=== PATIENT | female | born 1950 | race Caucasian/White ===

== ENCOUNTER 2016-10-23 20:05 | Inpatient (IN) | payer MEDICARE ==
[2016-10-23] VITALS (7 sets, daily range): BP systolic 129–139; BP diastolic 60–87; PULSE 83–94; RESP 16–19; TEMP 94–97.8; O2SAT 90–98
[~2016-10-23] VITALS: Ht 160 cm; Wt 82.1 kg
[~2016-10-23 20:05] MED LIST: BUSP10 PO; CALC600T37 PO; FLUO40CA PO; LOVA20TA PO; QUET25 PO; ZYPR20TA PO
--- NOTE | 2016-10-23 20:23 | PD ---
HPI Chief Complaint: Injury Time Seen by Provider: 20:14 Travel History International Travel<30 days: No Contact w/Intl Traveler<30days: No Traveled to known affect area: No History of Present Illness HPI Patient's 66 years old. About 30 minutes prior to ER arrival the patient fell and fractured her right ankle. Deformity and severe pain noted. Pain improved with immobilization. Patient's pain improved with morphine. EMS notes intact pulses. No other injury to report. Onset sudden. PFSH Past Medical History Anxiety: Yes Depression: Yes Heart Rhythm Problems: No Cardiac Catheterization: Yes (PT DOES NOT RECALL) Cardiovascular Problems: No High Cholesterol: Yes Diabetes: No Diminished Hearing: No Hypertension: No Psychiatric: Yes Schizophrenia: Yes Menopausal: Yes : 1 Para: 0 Miscarriage: 0 : 0 Past Surgical History Section: Yes Tonsillectomy: Yes Social History Alcohol Use: Yes (OCCAISIONAL) Tobacco Use: No Substance Use: No (Patient denies any abuse or drug experimentation.) Allergies-Medications (Allergen,Severity, Reaction): Coded Allergies: No Known Allergies (Unverified , 10/23/16) Reported Meds & Prescriptions Reported Meds & Active Scripts Active Reported Tussin Cf Liq (Zdrakznelwpwz-Zvhuytpewfeufk-Qzdeygxrbym Liq) 5-10-100 Mg/5 Ml Liq 10 Ml PO TID PRN Quetiapine (Quetiapine Fumarate) 50 Mg Tab 50 Mg PO DAILY Olanzapine 20 Mg Tab 20 Mg PO HS Fluoxetine (Fluoxetine HCl) 40 Mg Cap 40 Cap PO DAILY Buspirone (Buspirone HCl) 10 Mg Tab 10 Mg PO BID Atorvastatin (Atorvastatin Calcium) 20 Mg Tab 20 Mg PO DAILY Review of Systems Except as stated in HPI: all other systems reviewed are Neg Physical Exam Narrative GENERAL: 66 F, NAD, WNWD SKIN: Warm and dry. HEAD: Atraumatic. Normocephalic. EYES: Pupils equal and round. No scleral icterus. No injection or drainage. ENT: No nasal bleeding or discharge. Mucous membranes pink and moist. NECK: Trachea midline. No JVD. CARDIOVASCULAR: Regular rate and rhythm. RESPIRATORY: No accessory muscle use. Clear to auscultation. Breath sounds equal bilaterally. GASTROINTESTINAL: Abdomen soft, non-tender, nondistended. Hepatic and splenic margins not palpable. MUSCULOSKELETAL: R ankle fracture/dislocation w gross deformity. 2+ DP bilaterally. No evidence open injury/fracture. NEUROLOGICAL: Awake and alert. No obvious cranial nerve deficits. Motor grossly within normal limits. Five out of 5 muscle strength in the arms and legs. Normal speech. PSYCHIATRIC: Appropriate mood and affect; insight and judgment normal. Data Data Last Documented VS Vital Signs Date Time Temp Pulse Resp B/P Pulse Ox O2 Delivery O2 Flow Rate FiO2 10/23/16 21:01 86 19 129/63 94 4 10/23/16 20:30 Nasal Cannula VS reviewed Orders Ankle, Limited (Ap&Lat) (10/23/16 ) Complete Blood Count With Diff (10/23/16 20:18) Comprehensive Metabolic Panel (10/23/16 20:18) Prothrombin Time / Inr (Pt) (10/23/16 20:18) Act Partial Throm Time (Ptt) (10/23/16 20:18) Iv Access Insert/Monitor (10/23/16 20:18) Oximetry (10/23/16 20:18) Ecg Monitoring (10/23/16 20:18) Sodium Chloride 0.9% Flush (Ns Flush) (10/23/16 20:30) Propofol 200 Mg/20 Ml Inj (Diprivan 200 (10/23/16 20:30) Sodium Chlor 0.9% 1000 Ml Inj (Ns 1000 M (10/23/16 20:30) Ankle, Limited (Ap&Lat) (10/23/16 ) Admit Order (Ed Use Only) (10/23/16 21:23) Labs Laboratory Tests Test 10/23/16 20:53 White Blood Count 5.2 TH/MM3 Red Blood Count 4.09 MIL/MM3 Hemoglobin 11.5 GM/DL Hematocrit 35.9 % Mean Corpuscular Volume 87.6 FL Mean Corpuscular Hemoglobin 28.1 PG Mean Corpuscular Hemoglobin 32.1 % Concent Red Cell Distribution Width 14.2 % Platelet Count 121 TH/MM3 Mean Platelet Volume 9.4 FL Neutrophils (%) (Auto) 66.9 % Lymphocytes (%) (Auto) 20.4 % Monocytes (%) (Auto) 11.9 % Eosinophils (%) (Auto) 0.2 % Basophils (%) (Auto) 0.6 % Neutrophils # (Auto) 3.5 TH/MM3 Lymphocytes # (Auto) 1.1 TH/MM3 Monocytes # (Auto) 0.6 TH/MM3 Eosinophils # (Auto) 0.0 TH/MM3 Basophils # (Auto) 0.0 TH/MM3 CBC Comment DIFF FINAL Differential Comment Prothrombin Time 10.5 SEC Prothromb Time International 1.0 RATIO Ratio Activated Partial 23.9 SEC Thromboplast Time Sodium Level 140 MEQ/L Potassium Level 3.8 MEQ/L Chloride Level 110 MEQ/L Carbon Dioxide Level 23.4 MEQ/L Anion Gap 7 MEQ/L Blood Urea Nitrogen 10 MG/DL Creatinine 1.11 MG/DL Estimat Glomerular Filtration 49 ML/MIN Rate Random Glucose 112 MG/DL Calcium Level 7.7 MG/DL Total Bilirubin 0.1 MG/DL Aspartate Amino Transf 23 U/L (AST/SGOT) Alanine Aminotransferase 17 U/L (ALT/SGPT) Alkaline Phosphatase 67 U/L Total Protein 6.0 GM/DL Albumin 2.7 GM/DL [facility] Medical Decision Making Medical Screen Exam Complete: Yes Emergency Medical Condition: Yes Medical Record Reviewed: Yes Differential Diagnosis Tibia fx, fibula fx, fx of tarsal/s, contusion, neurovascular injury Narrative Course Closed reduction performed twice for better alignment. The patient will be admitted for operative repair. Discussed with orthopedics information resource consultant, Dr. Estrada. Discussed with Bernardo Rios. Diagnosis Primary Impression: Fracture, ankle Qualified Code: S82.891A - Fracture, ankle, right, closed, initial encounter Additional Impression: Dislocated ankle Qualified Code: S93.04XA - Dislocated ankle, right, initial encounter Admitting Information Admitting Physician Requests: Admit Scripts Calcium Carbonate-Vitamin D (Calcium 600+D 200)600-200 Mg-Unit Tab1 Tab PO BID #60 TAB Ref 2 Prov:William Baldwin MD 10/24/16 Cholecalciferol (Vitamin D3)2,000 Unit Cap2,000 Units PO DAILY #56 CAP Ref 0 Prov:William Baldwin MD 10/24/16 Ergocalciferol 50,000 Unit Cap50,000 Units PO Q7D #56 CAP Prov:William Baldwin MD 10/24/16 Hydrocodone-Acetaminophen (Harlan)7.5-325 mg Tab1 Tab PO Q4H PRN (PAIN) #50 TAB Ref 0 Prov:William Baldwin MD 10/24/16 Agapito Rivera MD October 23, 2016 20:23
[2016-10-23] MEDS ORDERED: SODIUM CHLOR 0.9% 1000 ML INJ 1,000 ML IV ONE (20:30)
[2016-10-23] MEDS ORDERED: PROPOFOL 200 MG/20 ML AMP IV ONE ×2 (20:30→21:45)
[2016-10-23] MEDS ORDERED: SODIUM CHLORIDE 0.9% FLUSH 10 ML FLUSH IVF PRN (20:30)
--- NOTE | 2016-10-23 20:45 | RADRPT ---
EXAM DATE/TIME: 10/23/2016 20:18 [facility] COMPARISON: No previous studies available for comparison. INDICATIONS : Right ankle pain after falling. MEDICAL HISTORY : None. SURGICAL HISTORY : None. ENCOUNTER: Initial ACUITY: 1 day PAIN SCORE: 8/10 LOCATION: Right ankle. FINDINGS: There is a fracture and dislocation seen at the ankle. The talus is displaced posteriorly and latera lly in relationship to the distal tibia. There is fracturing of the distal fibula and lateral malleo fahad and the medial malleolus. The distal fibula appears to primarily remain aligned with the talus. On the frontal view the medial malleolus appears to align with the medial aspect of the talus althou gh on the lateral view it may actually project over the distal aspect of the talus. There also appea rs to be a fracture deformity at the distal lateral aspect of the talus. The calcaneus appears gross ly intact. CONCLUSION: Fractures and dislocation at the ankle and distal fibula and tibia as described above. Bernardo Quiñones MD on October 23, 2016 at 20:32 Board Certified Radiologist. This report was verified electronically.
[2016-10-23] MEDS ORDERED: ATOR20TA15 PO (21:14)
[2016-10-23] MEDS ORDERED: TUSSLIQ5 PO (21:14)
[2016-10-23] MEDS ORDERED: FLUO40CA PO (21:14)
[2016-10-23] MEDS ORDERED: QUET5TAB PO (21:14)
[2016-10-23] MEDS ORDERED: OLAN20TA PO (21:14)
[2016-10-23] MEDS ORDERED: BUSP10TA PO (21:14)
[2016-10-23 21:21] LABS: AUTOMATED NEUTROPHIL # 3.5 TH/MM3 (1.8-7.7); BASOPHIL % 0.6 % (0.0-2.0); EOSINOPHIL % 0.2 % (0.0-4.0); HEMATOCRIT 35.9 % (35.0-46.0); HEMO FLAGS DIFF FINAL; LYMPH % 20.4 % (9.0-44.0); LYMPHOCYTE # 1.1 TH/MM3 (1.0-4.8); MEAN CELL VOLUME 87.6 FL (80.0-100.0); MEAN CORPUSCULAR HEMOGLOBIN 28.1 PG (27.0-34.0); MEAN CORPUSCULAR HGB CONC 32.1 % (32.0-36.0); MONO % 11.9 % (0.0-8.0); NEUT % 66.9 % (16.0-70.0); PLATELET COUNT 121 TH/MM3 (150-450); RED BLOOD COUNT 4.09 MIL/MM3 (4.00-5.30); RED CELL DISTRIBUTION WIDTH 14.2 % (11.6-17.2); WHITE BLOOD COUNT 5.2 TH/MM3 (4.0-11.0)
[2016-10-23 21:31] LABS: APTT (PATIENT) 23.9 SEC (24.3-30.1); PROTHROMBIN TIME - PATIENT 10.5 SEC (9.8-11.6)
--- NOTE | 2016-10-23 21:39 | RADRPT ---
EXAM DATE/TIME: 10/23/2016 21:06 [facility] COMPARISON: ANKLE RIGHT LIMITED (AP&LAT), October 23, 2016, 20:18. INDICATIONS : Post reduction right ankle. MEDICAL HISTORY : None. SURGICAL HISTORY : None. ENCOUNTER: Initial ACUITY: 1 day PAIN SCORE: 7/10 LOCATION: Right ankle FINDINGS: The patient is in a cast. Again noted are fractures at the distal fibula and medial malleolus. Ther e is some posterior and lateral subluxation of the talus in relationship to the distal tibia. CONCLUSION: Persistent posterior and lateral subluxation of the talus in relationship to the tibia. The alignment is substantially improved. Bernardo Quiñones MD on October 23, 2016 at 21:29 Board Certified Radiologist. This report was verified electronically.
[2016-10-23 21:42] LABS: ANION GAP 7 MEQ/L (5-15); AST (GOT) 23 U/L (15-37); BICARBONATE 23.4 MEQ/L (21.0-32.0); BLOOD UREA NITROGEN 10 MG/DL (7-18); CHLORIDE 110 MEQ/L (98-107); GLOMERULAR FILTRATION RATE 49 ML/MIN (>89); POTASSIUM 3.8 MEQ/L (3.5-5.1); SODIUM (NA) 140 MEQ/L (136-145)
[2016-10-23 21:48] LABS: ALKALINE PHOSPHATASE 67 U/L (45-117); ALT (GPT) 17 U/L (10-53); TOTAL BILIRUBIN ADULT 0.1 MG/DL (0.2-1.0)
[2016-10-23] MEDS ORDERED: ACETAMINOPHEN 325 MG TAB PO PRN (22:00)
[2016-10-23] MEDS ORDERED: ONDANSETRON HCL 4 MG/2 ML VIAL IVP PRN (22:00)
[2016-10-23] MEDS ORDERED: SODIUM CHLORIDE 0.9% FLUSH 10 ML FLUSH IV FLUSH PRN (22:00)
[2016-10-23] MEDS ORDERED: BISACODYL 10 MG SUPP RECTAL PRN (22:00)
[2016-10-23] MEDS ORDERED: MORPHINE SULFATE 4 MG/ML INJ IV PRN (22:00)
[2016-10-23] MEDS ORDERED: NALOXONE HCL 0.4 MG/ML AMP IV PRN (22:00)
[2016-10-23] MEDS ORDERED: SENNOSIDES 8.6 MG TAB PO PRN (22:00)
--- NOTE | 2016-10-23 22:34 | RADRPT ---
EXAM DATE/TIME: 10/23/2016 22:14 [facility] COMPARISON: ANKLE RIGHT LIMITED (AP&LAT), October 23, 2016, 21:06. INDICATIONS : Post reduction right ankle, MEDICAL HISTORY : None. SURGICAL HISTORY : None. ENCOUNTER: Subsequent ACUITY: 1 day PAIN SCORE: Non-responsive. LOCATION: Right ankle FINDINGS: Again noted is the fracturing of the distal fibula and the medial malleolus. There is slight lateral subluxation of the talus in relationship to the distal tibia. The alignment is improved from the pr ior exam. The patient is in a cast. CONCLUSION: Fracture deformities of the distal fibula and medial malleolus with slight lateral displacement of th e talus in relationship to the distal tibia. Bernardo Quiñones MD on October 23, 2016 at 22:26 Board Certified Radiologist. This report was verified electronically.
[2016-10-23] MEDS: MORPHINE SULFATE 4 MG/ML INJ IV PRN (23:00)
[2016-10-23] MEDS: SODIUM CHLOR 0.9% 1000 ML INJ 1,000 ML IV SCH (23:17)
[2016-10-24 03:24] VITALS: BP 121/70; PULSE 78; RESP 17; TEMP 96; O2SAT 98
[2016-10-24] MEDS: MORPHINE SULFATE 4 MG/ML INJ IV PRN (03:39)
--- NOTE | 2016-10-24 06:38 | PD.ORT.PN ---
Subjective Subjective Remarks Fall at assisted living facility right ankle fracture and deformity. No other complaints Objective Vitals Vital Signs Date Time Temp Pulse Resp B/P Pulse Ox O2 Delivery O2 Flow Rate FiO2 10/24/16 03:24 96.0 78 17 121/70 98 10/23/16 23:00 96.5 85 17 139/76 94 10/23/16 22:39 89 17 138/60 95 3 10/23/16 22:15 94 16 139/65 98 Nasal Cannula 3 10/23/16 22:02 97 Nasal Cannula 5.00 10/23/16 22:02 97 5.00 10/23/16 22:02 97 10/23/16 21:01 86 19 129/63 94 4 10/23/16 20:30 96 6.00 10/23/16 20:30 96 10/23/16 20:30 96 Nasal Cannula 6.00 10/23/16 20:11 97.8 83 16 130/87 90 I/O 10/23/16 10/23/16 10/23/16 10/24/16 10/24/16 10/24/16 07:00 15:00 23:00 07:00 15:00 23:00 Intake Total 480 ml Balance 480 ml Intake Oral 480 ml # Voids 0 # Bowel Movements 0 Result Diagram: 10/23/16205210/23/162052 Other Results Laboratory Tests Test 10/23/16 20:53 Prothrombin Time 10.5 SEC (9.8-11.6) Prothromb Time International 1.0 RATIO Ratio Imaging Last 72 hours Impressions Ankle X-Ray 10/23/16 0000 Signed Impressions: Service Date/Time: October 22:14 - CONCLUSION: Fracture deformities of the distal fibula and medial malleolus with slight lateral displacement of the talus in relationship to the distal tibia. Bernardo Quiñones MD Ankle X-Ray 10/23/16 0000 Signed Impressions: Service Date/Time: October 21:06 - CONCLUSION: Persistent posterior and lateral subluxation of the talus in relationship to the tibia. The alignment is substantially improved. Bernardo Quiñones MD Ankle X-Ray 10/23/16 0000 Signed Impressions: Service Date/Time: October 20:18 - CONCLUSION: Fractures and dislocation at the ankle and distal fibula and tibia as described above. Bernardo Quiñones MD Objective Remarks Right lower extremity: No pain with hip or knee range of motion. Splint intact distally intact sensation with good capillary refills Assessment & Plan Assessment and Plan Right trimalleolar ankle fracture Nothing by mouth Sign consents Surgery this morning with Dr. Baldwin for ORIF We'll plan discharge back to assisted living facility Jonathon Leigh Jr. October 24, 2016 06:38
[2016-10-24] MEDS ORDERED: GENTAMICIN SULFATE 80 MG/2 ML VIAL ONE (06:47)
[2016-10-24] MEDS ORDERED: fentaNYL CITRATE 250 MCG/5 ML AMP ONE (06:54)
[2016-10-24] MEDS ORDERED: ACETAMINOPHEN 1000 MG/100 ML VIAL IV ONE (06:54)
[2016-10-24] MEDS: SODIUM CHLORIDE 0.9% FLUSH 10 ML FLUSH IV FLUSH SCH ×2 (07:12→21:00)
[2016-10-24] MEDS: SODIUM CHLOR 0.9% 1000 ML INJ 1,000 ML IV SCH ×2 (07:12→11:39)
[2016-10-24] MEDS ORDERED: VANCOMYCIN HCL 1000 MG VIAL ONE (07:37)
[2016-10-24] MEDS ORDERED: ceFAZolin 2 GM PREMIX 50 ML ONE (07:37)
[2016-10-24] MEDS ORDERED: SODIUM CHLOR 0.9% 250 ML INJ 250 ML ONE (07:37)
--- NOTE | 2016-10-24 08:03 | MB ---
cc: IVY PATEL DATE OF CONSULTATION: 10/24/2016 REASON FOR CONSULTATION Right ankle fracture-dislocation. HISTORY OF PRESENT ILLNESS Josee is a 66-year-old female who lives at [facility]. She states that she lost her balance and fell. She rolled her right ankle as she fell. She had immediate right ankle pain. She was unable to stand or ambulate. She had obvious deformity or her ankle. She presented to the emergency room where x-rays revealed a fracture-dislocation of the right ankle. She underwent closed reduction in the emergency department. She has been admitted for treatment of this injury. Currently her only complaint is her right ankle. Pain is worse with movement and is improved with rest. PAST MEDICAL HISTORY ILLNESSES 1. High cholesterol. 2. Depression. 3. Anxiety. 4. Schizophrenia. ALLERGIES No known drug allergies. MEDICATIONS 1. Guaifenesin. 2. Olanzapine. 3. Fluoxetine. 4. Buspirone. 5. Atorvastatin. 6. Quetiapine. PAST SURGICAL HISTORY 1. Tonsillectomy. 2. . SOCIAL HISTORY The patient does drink alcohol. She denies tobacco or drug use. REVIEW OF SYSTEMS The patient denies headache, visual changes, neck pain, chest pain, shortness of breath, abdominal pain, nausea, vomiting or recent weight loss. She complains of right ankle pain. Pain is worse with movement. FAMILY HISTORY Noncontributory. PHYSICAL EXAMINATION GENERAL: The patient is a well-developed, well-nourished 66-year-old female who is awake and alert. She is alert and oriented x3. VITAL SIGNS: Temperature 96.0, pulse 78, respirations 17, blood pressure 121/70. O2 sat is 98% on three liter nasal cannula. HEAD: The patient is normocephalic. Pupils are equal. NECK: Soft, nontender. Trachea is midline. CHEST: Lungs are clear. ABDOMEN: Soft, nontender, nondistended. EXTREMITIES: Examination of bilateral upper extremities reveals no pain with shoulder, elbow or wrist motion. She has intact sensation in all fingers. She has good capillary refill in all fingers. Radial pulses are palpable. Examination of left leg reveals no pain with hip, knee or ankle motion. Skin is intact. Dorsalis pedis pulse is palpable. Examination of right leg reveals no pain with hip or knee motion. She is diffusely tender around the ankle. There is mild swelling present. Skin is intact. Dorsalis pedis pulse is palpable. Sensation is intact. X-RAYS X-rays of right ankle were reviewed. X-rays reveal initial trimalleolar ankle fracture with dislocation. IMPRESSION 1. Right ankle fracture-dislocation. 2. Depression. 3. History of schizophrenia. 4. Tobacco dependence. PLAN The treatment options were discussed with the patient. At this point I would recommend open reduction, internal fixation of right ankle. The risks of surgery include bleeding, infection, injuries to arteries, nerves and blood vessels, nonunion, malunion, wound complications, infection, as well as medical complications including blood clot, stroke, heart attack and . All questions were answered. I explained to the patient that she will need to stop smoking to help decrease her risk of infection as well as increase her rate of healing. All questions were answered. I will plan on surgery today. A mid-level provider in my office, nurse practitioner or PA, may see this patient on a follow-up basis and continue to implement the objective of this plan including: Starting or adjusting medications, injections of muscle, tendon, bursa or joints, cast application, orthotic or brace application, physical therapy, further radiographic studies including x-ray, MRI, CT, ultrasounds or bone scan, vascular studies, neurologic studies, or other specialist consultations, and proceeding with surgical management as appropriate. MD TRISTAN Berumen/ANGELIC /6:41 AM /7:51 AM
--- NOTE | 2016-10-24 08:39 | PD.OP ---
cc: William Geiger MD Operative Report Date of Surgery: October 24, 2016 Preoperative Diagnosis: Displaced right ankle trimalleolar fracture with syndesmosis disruption Postoperative Diagnosis: Procedure: Open reduction internal fixation right ankle fractures with syndesmotic fixation Anesthesia: Gen. Surgeon: William Geiger Bicycle I Assembler(s): MADAN Gold PA-C The surgical procedure was assisted by my physician compliance assistant. My P.A. presence was necessary throughout this case for the manipulation and positioning of the surgical extremity. My P.A. was assisting me throughout the duration of this procedure. The skill set of a physician compliance assistant was medically necessary to complete this procedure. During the surgical case the surgical scrub technician was working at the back table and the physician compliance assistant was directly assisting me. Operation and Findings: Patient was seen and evaluated preoperatively and found to have a displaced right ankle trimalleolar fracture dislocation. Informed consent was obtained after a detailed discussion of risk and benefits of surgery. The operative site was marked. Patient was brought to the OR, placed on the OR table, and given IV sedation and general endotracheal anesthesia. IV antibiotics were given preoperatively. A timeout procedure was performed. The left leg was prepped with alcohol followed by Hibiclens and draped in the usual sterile fashion. Attention was turned towards the distal fibula. A four-inch incision was made over the distal fibula. The subcutaneous tissue was dissected with Bovie. The fracture site was visualized. The fracture site was cleaned with curets. The fracture had some comminution. The fracture was now reduced. The fracture keyed into anatomic alignment. K-wires were used to h old provisional fixation. A lag screw was placed to compress fracture. A Synthes plate was selected. The plate was provisionally held to bone with K-wires. 3.5 cortical screws were used to compress the plate to bone. Multiple screws were placed above and below the fracture. Next attention was turned towards the medial malleolus. The medial malleolus supposed through a 3 cm incision. Saphenous vein was retracted. Fracture was visualized. Fracture was cleaned with curettes. Fracture was now reduced and keyed into anatomic alignment. K wires were used to hold provisional fixation. 2 guidepins for the 4.0 cannulated screws were placed in a retrograde fashion across the fracture. Fluoroscopy was used to confirm guidepin placement. Cannulated drill was placed over the guidepin. 2 appropriate length screws were now placed. Good compression was applied. Fluoroscopy confirmed well aligned fracture with well-placed hardware. Next, attention was turned to the syndesmosis. The syndesmosis was stressed. There was widening of the syndesmosis with external rotation of the ankle. The syndesmosis was now held in a reduced position with the ankle in neutral position. Two Synthes 4.0 cortical screws were now placed through the fibula plate into the tibia. Fluoroscopy confirmed appropriate screw placement with well-aligned syndesmosis. Incisions were thoroughly irrigated. The subcutaneous tissue was closed with 3-0 PDS and the skin was closed with 3-0 nylon. Sterile dressings were applied. A well molded well-padded splint was applied. The patient was transferred to Recovery in stable condition. Needle and sponge counts were correct. William Geiger MD October 24, 2016 08:39
[2016-10-24] MEDS ORDERED: ERGO1CAP30 PO (08:42)
[2016-10-24] MEDS ORDERED: HYDR-3288 PO (08:42)
[2016-10-24] MEDS ORDERED: CALCTAB19 PO (08:42)
[2016-10-24] MEDS ORDERED: VITA2000 PO (08:42)
[2016-10-24] MEDS ORDERED: ACETAMINOPHEN/HYDROcodone 325 MG/7.5 MG TAB PO PRN (08:45)
[2016-10-24] MEDS ORDERED: Post-op Orders (for Pharmacy) MISC XX ONE (08:45)
[2016-10-24] MEDS ORDERED: MORPHINE SULFATE 4 MG/ML INJ IV PUSH PRN (08:45)
--- NOTE | 2016-10-24 09:03 | RADRPT ---
EXAM DATE/TIME: 10/24/2016 08:23 [facility] COMPARISON: ANKLE RIGHT LIMITED (AP&LAT), October 23, 2016, 22:14. INDICATIONS : Post-op ORIF right ankle fracture. MEDICAL HISTORY : None. SURGICAL HISTORY : None. ENCOUNTER: Subsequent ACUITY: 2 days PAIN SCORE: Non-responsive. LOCATION: Right Ankle. FINDINGS: Hand Drawer In Helper images during right ankle ORIF document a lateral fibular side plate with multiple interlocking screws and 2 syndesmotic screws. There are 2 partially threaded cannulated screws traversing the med ial malleolus. Overall, there is improved anatomic alignment ankle mortise is intact. CONCLUSION: Spot images obtained during right ankle ORIF, as above. Bernardo Robledo MD on October 24, 2016 at 8:55 Board Certified Radiologist. This report was verified electronically.
[2016-10-24] MEDS ORDERED: WALKER/ADULT/FO1 MIS (09:11)
[2016-10-24] MEDS ORDERED: *RESP: ALBUTEROL 2.5 MG/3 ML NEB (PRN) PERIprocedural Use ONLY NEB ONE (09:17)
[2016-10-24] MEDS ORDERED: DO NOT ADM ANY ANTICOAGULANT DRUGS PRN (10:15)
[2016-10-24 10:58] VITALS: BP 103/60; PULSE 86; RESP 18; TEMP 97.2; O2SAT 96
[2016-10-24] MEDS: ACETAMINOPHEN/HYDROcodone 325 MG/7.5 MG TAB PO PRN ×3 (11:39→21:23)
[2016-10-24] MEDS ORDERED: ONDANSETRON HCL 4 MG/2 ML VIAL IV PUSH ONE (12:00)
[2016-10-24] MEDS ORDERED: PROPOFOL 200 MG/20 ML AMP IV ONE (12:00)
[2016-10-24] MEDS ORDERED: PHENYLEPH/NS 1000 MCG/10 ML SYR IV ONE (12:00)
--- NOTE | 2016-10-24 12:08 | HHI.HP ---
[facility] Peewee Montana M.D. Admission Diagnosis R Ankle Fx Diagnoses: Chief Complaint: fall and right ankle pain (Mary Bonds) Travel History International Travel<30 Days: No Contact w/Intl Traveler <30 Da: No Traveled to Known Affected Are: No (Mary Bonds) History of Present Illness This is a 66-year-old female from a local assisted living facility, has significant past medical history of schizophrenia, depression, hyperlipidemia. Patient presented to the emergency room after she had a fall and fracture right ankle. She had significant deformity and pain. Denies any preceding symptoms prior to the fall, indicates she was leaning against a wall when her ankle twisted. She did not hit her head, no neck pain. No loss of consciousness. Denies any recent illnesses, no fever, no chills, no chest pain, shortness of breath. Patient was evaluated in emergency room, laboratory workup was completed. Unremarkable except for mild elevation in creatinine, 1.11. Imaging studies were completed. She was found with a displaced right ankle trimalleolar fracture. Orthopedic evaluated patient, surgery was recommended. Patient underwent open reduction internal fixation right ankle fractures with syndesmotic fixation. Patient is now evaluated postop, she is awake alert oriented 3. Denies any pain at this time. She is tolerating meals well, no nausea, no vomiting. Patient is admitted for further evaluation and treatment. (Mary Bonds) Review of Systems ROS Limitations: Poor Historian Musculoskeletal: COMPLAINS OF: Joint pain (Mary Bonds) Past Family Social History Past Medical History Hyperlipidemia Manic-depressive Schizophrenia Past Surgical History cardiac cath STT 2016 tonsillectomy c section Reported Medications Reported Meds & Active Scripts Active Calcium 600+D 200 (Calcium Carbonate-Vitamin D) 600-200 Mg-Unit Tab 1 Tab PO BID Vitamin D3 (Cholecalciferol) 2,000 Unit Cap 2,000 Units PO DAILY Ergocalciferol 50,000 Unit Cap 50,000 Units PO Q7D [place] (Hydrocodone-Acetaminophen) 7.5-325 mg Tab 1 Tab PO Q4H PRN Reported Tussin Cf Liq (Kqheqgnevvnsm-Kwtdyttshgokeq-Ubgrrekbmrw Liq) 5-10-100 Mg/5 Ml Liq 10 Ml PO TID PRN Quetiapine (Quetiapine Fumarate) 50 Mg Tab 50 Mg PO DAILY Olanzapine 20 Mg Tab 20 Mg PO HS Fluoxetine (Fluoxetine HCl) 40 Mg Cap 40 Cap PO DAILY Buspirone (Buspirone HCl) 10 Mg Tab 10 Mg PO BID Atorvastatin (Atorvastatin Calcium) 20 Mg Tab 20 Mg PO DAILY (Mary Bonds) Allergies: Coded Allergies: No Known Allergies (Unverified , 10/23/16) Active Ordered Medications Inpatient Medications Acetaminophen (Tylenol) 650 mg Q4H PRN PO TEMP > 100.4; Start 10/23/16 at 22:00 Acetaminophen/ Hydrocodone Bitart ([place] 7.5-325 Mg) 2 tab Q6H PRN PO PAIN GREATER THAN/EQUAL TO 5; Start 10/24/16 at 08:45 Bisacodyl (Dulcolax Supp) 10 mg DAILY PRN RECTAL CONSTIPATION; Start 10/23/16 at 22:00 Cefazolin Sodium/ Dextrose (Ancef 2 Gm Premix) 50 ml @ 100 mls/hr Q8H IV ; Start 10/24/16 at 16:00; Stop 10/25/16 at 08:29 Miscellaneous Information ALL NURSING DEPARTME... UNSCH PRN .XX SEE LABEL COMMENTS; Start 10/24/16 at 10:15; Stop 10/25/16 at 10:14 Morphine Sulfate (Morphine Inj) 4 mg Q3H PRN IV PUSH break thru pain; Start 10/24/16 at 08:45 Naloxone HCl 0.4 mg 0.4 mg UNSCH PRN IV SEE LABEL COMMENTS; Start 10/23/16 at 22 :00 Ondansetron HCl (Zofran Inj) 4 mg Q6H PRN IVP NAUSEA OR VOMITING; Start at 22:00 Propofol (Diprivan 200 Mg/20 ml Inj) 100 mg ONCE ONCE IV Last administered on 10/23/16 21:00; Start 10/23/16 at 20:30; Stop 10/23/16 at 20:31; Status DC Propofol 100 mg 100 mg ONCE ONCE IV Last administered on 10/23/16 22:20; Start 10/23/16 at 21:45; Stop 10/23/16 at 21:46; Status DC Sennosides (Senokot) 17.2 mg Q12H PRN PO CONSTIPATION; Start 10/23/16 at 22:00 Sodium Chloride (NS 1000 ml Inj) 1,000 ml @ 100 mls/hr Q10H IV Last administered on 10/24/16t 11:39; Start 10/23/16 at 22:00 Sodium Chloride (NS Flush) 2 ml BID IV FLUSH ; Start 10/24/16 at 09:00 Family History Father with CABG at age 89, still living at age 92 No other significant family history of diabetes, heart disease or cancers. Social History Denies ever using tobacco or illicit drugs. Used to drink approximately 12 beers monthly on a social occasion, but none recent due to living at an [facility] Patient is Patient has a daughter who lives in the area named [place] Resides at [facility] (Mary Bonds) Physical Exam Vital Signs Vital Signs Date Time Temp Pulse Resp B/P Pulse Ox O2 Delivery O2 Flow Rate FiO2 10/24/16 10:00 83 25 114/56 94 Nasal Cannula 4 10/24/16 09:45 92 16 109/55 92 Nasal Cannula 4 10/24/16 09:30 97 18 130/59 95 Nasal Cannula 4 10/24/16 09:14 97.5 117 19 144/87 80 Simple Mask 10 10/24/16 03:24 96.0 78 17 121/70 98 10/23/16 23:00 96.5 85 17 139/76 94 10/23/16 22:39 89 17 138/60 95 3 10/23/16 22:15 94 16 139/65 98 Nasal Cannula 3 10/23/16 22:02 97 Nasal Cannula 5.00 10/23/16 22:02 97 5.00 10/23/16 22:02 97 10/23/16 21:01 86 19 129/63 94 4 10/23/16 20:30 96 6.00 10/23/16 20:30 96 10/23/16 20:30 96 Nasal Cannula 6.00 10/23/16 20:11 97.8 83 16 130/87 90 Physical Exam GENERAL: This is a well-nourished, well-developed patient, in no apparent distress. SKIN: No rashes, ecchymoses or lesions. Cool and dry. HEAD: Atraumatic. Normocephalic. No temporal or scalp tenderness. EYES: Pupils equal round and reactive. Extraocular motions intact. No scleral icterus. No injection or drainage. ENT: Nose without bleeding, purulent drainage or septal hematoma. Throat without erythema, tonsillar hypertrophy or exudate. Uvula midline. Airway patent. NECK: Trachea midline. No JVD or lymphadenopathy. Supple, nontender, no meningeal signs. CARDIOVASCULAR: Regular rate and rhythm without murmurs, gallops, or rubs. RESPIRATORY: Clear to auscultation. Breath sounds equal bilaterally. No wheezes , rales, or rhonchi. GASTROINTESTINAL: Abdomen soft, non-tender, nondistended. No hepato-splenomegaly , or palpable masses. No guarding. MUSCULOSKELETAL: Right leg in splint with dressing in place. Right foot with intact sensation, right pedal pulse 2+. NEUROLOGICAL: Awake, alert oriented 3. No focal deficits. Laboratory Laboratory Tests Test 10/23/16 20:53 White Blood Count 5.2 Red Blood Count 4.09 Hemoglobin 11.5 Hematocrit 35.9 Mean Corpuscular Volume 87.6 Mean Corpuscular Hemoglobin 28.1 Mean Corpuscular Hemoglobin 32.1 Concent Red Cell Distribution Width 14.2 Platelet Count 121 Mean Platelet Volume 9.4 Neutrophils (%) (Auto) 66.9 Lymphocytes (%) (Auto) 20.4 Monocytes (%) (Auto) 11.9 Eosinophils (%) (Auto) 0.2 Basophils (%) (Auto) 0.6 Neutrophils # (Auto) 3.5 Lymphocytes # (Auto) 1.1 Monocytes # (Auto) 0.6 Eosinophils # (Auto) 0.0 Basophils # (Auto) 0.0 CBC Comment DIFF FINAL Differential Comment Prothrombin Time 10.5 Prothromb Time International 1.0 Ratio Activated Partial 23.9 Thromboplast Time Sodium Level 140 Potassium Level 3.8 Chloride Level 110 Carbon Dioxide Level 23.4 Anion Gap 7 Blood Urea Nitrogen 10 Creatinine 1.11 Estimat Glomerular Filtration 49 Rate Random Glucose 112 Calcium Level 7.7 Total Bilirubin 0.1 Aspartate Amino Transf 23 (AST/SGOT) Alanine Aminotransferase 17 (ALT/SGPT) Alkaline Phosphatase 67 Total Protein 6.0 Albumin 2.7 (Mary Bonds) Result Diagram: 10/23/16205210/23/162052 Imaging Last Impressions Ankle X-Ray 10/24/16 0000 Signed Impressions: Service Date/Time: Monday, October 24, 2016 08:23 - CONCLUSION: Spot images obtained during right ankle ORIF, as above. Bernardo Robledo MD (Mary Bonds) Assessment and Plan Problem List: (1) Fracture, ankle (2) Depression (3) HLD (hyperlipidemia) (4) Schizophrenia (5) Renal insufficiency Assessment and Plan Admit to Dr. Turner 66-year-old female admitted after fall, was found with displaced right ankle trimalleolar fracture with syndesmosis disruption, status post-Open reduction internal fixation right ankle fractures with syndesmotic fixation 10/24 -Appreciate orthopedic input Continue pain management -Continue IVF Physical therapy Bowel regimen has been ordered We will order Lovenox 40 mg subcutaneous daily to start tomorrow Mild renal insufficiency Continue IV fluids Depression, schizophrenia, stable Continue home medications Hyperlipidemia Continue home medications Lovenox for DVT prophylaxis Repeat labs in the morning Plan of care has been discussed with the patient, attending and registered nurse. Further management of the patient will be dependent on the hospital course This patient was seen by myself and Dr. Turner, this H&P is written on his behalf (Mary Bonds) Assessment and Plan pt is seen & examined d/w PT d/w Mary [place] above will f/u (Kel Turner MD) Physician Certification 2 Midnight Certification Type: Admission for Inpatient Services Order for Inpatient Services The services are ordered in accordance with Medicare regulations or non- Medicare payer requirements, as applicable. In the case of services not specified as inpatient-only, they are appropriately provided as inpatient services in accordance with the 2-midnight benchmark. Estimated LOS (days): 2 2 days is the estimated time the patient will need to remain in the hospital, assuming treatment plan goals are met and no additional complications. Post-Hospital Plan: SNF (Mary Bonds) Problem Qualifiers (1) Fracture, ankle: Qualified Code: S82.891A - Fracture, ankle, right, closed, initial encounter (2) Depression: Qualified Code: F32.9 - Depression, unspecified depression type (3) HLD (hyperlipidemia): Qualified Code: E78.5 - Hyperlipidemia, unspecified hyperlipidemia type (4) Schizophrenia: Qualified Code: F20.9 - Schizophrenia, unspecified type Mary Bonds October 24, 2016 12:08 Kel Turner MD October 24, 2016 12:47
[2016-10-24 16:00] VITALS: BP 120/63; PULSE 104; RESP 18; TEMP 98.9; O2SAT 94
[2016-10-24] MEDS: ceFAZolin 2 GM PREMIX 50 ML IV SCH (16:14)
[2016-10-24 16:45] VITALS: O2SAT 97
[2016-10-24 20:00] VITALS: BP 122/71; PULSE 106; RESP 18; TEMP 99.4; O2SAT 96
[2016-10-24 20:55] VITALS: O2SAT 97
[2016-10-24] MEDS: CALCIUM/VITAMIN D 250 MG/125 U TAB PO SCH (21:21)
[2016-10-24] MEDS: busPIRone HCL 10 MG TAB PO SCH (21:22)
[2016-10-24] MEDS: OLANZapine 10 MG TAB PO SCH (21:22)
[2016-10-25] VITALS (7 sets, daily range): BP systolic 94–138; BP diastolic 58–68; PULSE 92–103; RESP 18–22; TEMP 97.2–100.8; O2SAT 92–94
[2016-10-25] MEDS: ceFAZolin 2 GM PREMIX 50 ML IV SCH ×2 (00:15→09:29)
[2016-10-25] MEDS: ACETAMINOPHEN/HYDROcodone 325 MG/7.5 MG TAB PO PRN ×2 (03:14→12:25)
[2016-10-25] MEDS: SODIUM CHLOR 0.9% 1000 ML INJ 1,000 ML IV SCH ×2 (04:00→14:26)
[2016-10-25 05:21] LABS: HEMATOCRIT 29.8 % (35.0-46.0); MEAN CELL VOLUME 85.6 FL (80.0-100.0); MEAN CORPUSCULAR HEMOGLOBIN 28.8 PG (27.0-34.0); MEAN CORPUSCULAR HGB CONC 33.6 % (32.0-36.0); PLATELET COUNT 102 TH/MM3 (150-450); RED BLOOD COUNT 3.49 MIL/MM3 (4.00-5.30); RED CELL DISTRIBUTION WIDTH 14.2 % (11.6-17.2); REVIEW FLAG FINAL; WHITE BLOOD COUNT 6.6 TH/MM3 (4.0-11.0)
[2016-10-25 05:43] LABS: BICARBONATE 23.3 MEQ/L (21.0-32.0); POTASSIUM 3.3 MEQ/L (3.5-5.1)
--- NOTE | 2016-10-25 06:58 | PD.ORT.PN ---
Subjective Subjective Remarks Resting comfortably with no new complaints Objective Vitals Vital Signs Date Time Temp Pulse Resp B/P Pulse Ox O2 Delivery O2 Flow Rate FiO2 10/25/16 04:10 100.8 101 20 117/58 93 10/25/16 00:05 99.1 92 19 113/59 94 10/24/16 20:55 97 10/24/16 20:00 99.4 106 18 122/71 96 10/24/16 17:44 16 10/24/16 16:45 97 21 10/24/16 16:00 98.9 104 18 120/63 94 10/24/16 10:58 97.2 86 18 103/60 96 10/24/16 10:00 83 25 114/56 94 Nasal Cannula 4 10/24/16 09:45 92 16 109/55 92 Nasal Cannula 4 10/24/16 09:30 97 18 130/59 95 Nasal Cannula 4 10/24/16 09:14 97.5 117 19 144/87 80 Simple Mask 10 I/O 10/24/16 10/24/16 10/24/16 10/25/16 10/25/16 10/25/16 07:00 15:00 23:00 07:00 15:00 23:00 Intake Total 480 ml 800 ml 720 ml 120 ml Output Total 1050 ml 600 ml 1100 ml Balance 480 ml -250 ml 120 ml -980 ml Intake Oral 480 ml 720 ml 120 ml Other 800 ml Output Urine Total 1000 ml 600 ml 1100 ml Estimated Blood Loss 50 ml # Voids 1 # Bowel Movements 0 0 0 Result Diagram: 10/25/16 0508 10/25/16 0508 Imaging Last 72 hours Impressions Ankle X-Ray 10/23/16 0000 Signed Impressions: Service Date/Time: October 22:14 - CONCLUSION: Fracture deformities of the distal fibula and medial malleolus with slight lateral displacement of the talus in relationship to the distal tibia. Bernardo Quiñones MD Ankle X-Ray 10/23/16 0000 Signed Impressions: Service Date/Time: October 21:06 - CONCLUSION: Persistent posterior and lateral subluxation of the talus in relationship to the tibia. The alignment is substantially improved. Bernardo Quiñones MD Ankle X-Ray 10/23/16 0000 Signed Impressions: Service Date/Time: October 20:18 - CONCLUSION: Fractures and dislocation at the ankle and distal fibula and tibia as described above. Bernardo Quiñones MD Objective Remarks Right lower extremity: Splint intact, clean dry with no drainage. Intact sensation in all toes. With good capillary refills Assessment & Plan Assessment and Plan Right trimalleolar ankle fracture POD 1 ORIF Nonweightbearing right lower extremity Maintain splint Elevation and ice Plan for discharge to assisted living when medically stable Orthopedically cleared for discharge Follow-up with Dr. Geiger or PA in 2 weeks Jonathon Leigh Jr. October 25, 2016 06:58
[2016-10-25] MEDS: SODIUM CHLORIDE 0.9% FLUSH 10 ML FLUSH IV FLUSH SCH ×2 (09:00→20:44)
[2016-10-25] MEDS: busPIRone HCL 10 MG TAB PO SCH ×2 (09:29→20:44)
[2016-10-25] MEDS: FLUoxetine HCL 20 MG CAP PO SCH (09:29)
[2016-10-25] MEDS: ATORVASTATIN 20 MG TAB PO SCH (09:29)
[2016-10-25] MEDS: QUEtiapine FUMARATE 25 MG TAB PO SCH (09:30)
[2016-10-25] MEDS: CALCIUM/VITAMIN D 250 MG/125 U TAB PO SCH ×2 (09:30→20:41)
[2016-10-25] MEDS: ENOXAPARIN SODIUM 40 MG/0.4 ML SYRINGE SQ SCH (09:31)
[2016-10-25] MEDS: CHOLECALCIFEROL (VIT D3) 1000 UNIT TAB PO SCH (09:35)
--- NOTE | 2016-10-25 12:47 | HHI.PR ---
Subjective Remarks resting up in chair alert, oriented low grade fever rt. leg wrapped, immobilized, CDI constipation (Ila Reddy) Objective Objective Results - Vital Signs Date Time Temp Pulse Resp B/P Pulse Ox O2 Delivery O2 Flow Rate FiO2 10/25/16 08:00 99.0 99 18 94/62 92 10/25/16 04:10 100.8 101 20 117/58 93 10/25/16 00:05 99.1 92 19 113/59 94 10/24/16 20:55 97 10/24/16 20:00 99.4 106 18 122/71 96 10/24/16 17:44 16 10/24/16 16:45 97 21 10/24/16 16:00 98.9 104 18 120/63 94 I/O 10/24/16 10/24/16 10/24/16 10/25/16 10/25/16 10/25/16 07:00 15:00 23:00 07:00 15:00 23:00 Intake Total 480 ml 800 ml 720 ml 120 ml Output Total 1050 ml 600 ml 1100 ml Balance 480 ml -250 ml 120 ml -980 ml Intake Oral 480 ml 720 ml 120 ml Other 800 ml Output Urine Total 1000 ml 600 ml 1100 ml Estimated Blood Loss 50 ml # Voids 1 # Bowel Movements 0 0 0 (Ila Reddy) Result Diagram: 10/25/16 0508 10/25/16 0508 ROS General: Fatigue, Weakness, Other (10 point ROS done, positives noted include constipation. Generalized weakness and fatigue otherwise systems unremarkable) GI: Abdominal Pain, Other (constipation) (Ila Reddy) Physical Exam Physical Exam PHYSICAL EXAMINATION GENERAL: This is a , well-nourished female who appears to be in no acute distress. She is alert and awake, up in chair HEAD: Normocephalic without any lesion or mass noted. Facial features appear symmetric. OROPHARYNGEAL: Oropharynx without erythema or edema. NECK: Supple. No nuchal rigidity or lymphadenopathy. Trachea midline without deviation. CARDIAC: Regular rhythm, regular rate, S1 and S2 are heard. LUNGS: Clear to auscultation bilaterally. No rhonchi or wheezes ABDOMEN: taut, Soft, nontender, . Bowel sounds active EXTREMITIES: Mild right lower extremity edema. Pulses equal bilateral. NEUROLOGICAL: Patient mood and affect appropriate. No focal deficit SKIN:Warm and moist Objective Remarks I'm doing okay I guess but my bowels have not moved (Ila Reddy) A/P Assessment and Plan (1) Fracture, ankle (2) Depression (3) HLD (hyperlipidemia) (4) Schizophrenia (5) Renal insufficiency post-op Open reduction internal fixation right ankle fractures with syndesmotic fixation 10/24 orthopedic consult , appreciate input, cleared today from ortho standput. Continue pain management post op care management Physical therapy Bowel regimen , constipation Abdomen taut, no BM since admission and a few days before. We will check for impaction, Dulcolax suppository for today Hypokalemia, mild, 3.3 By mouth regimen ordered, Will recheck K in the morning Mild renal insufficiency Continue IV fluids Depression, schizophrenia, stable Continue home medications Hyperlipidemia Continue home medications Lovenox for DVT prophylaxis Discharge planning, 3008 on chart CM consult for SNF rehab. Non wt. bearing rt. leg, brace on Case management looking at options states will probably be be a tomorrow discharge. Discussed with nurse Discussed with case management Discussed with patient Specimen Dr. Turner, patient seen on his behalf (Ila Reddy) Assessment and Plan pt is seen & examined d.w PT d/w Ila rangel w above cont current tx PT lesly , NWB R LExt , she needs SNF placement ss for d./c planning will f/u (Kel Turner MD) Ila Reddy October 25, 2016 12:47 Kel Turner MD October 25, 2016 15:31
[2016-10-25] MEDS ORDERED: POTASSIUM CHLORIDE 25 MEQ EFFERVESCENT TAB PO ONE (13:00)
[2016-10-25] MEDS ORDERED: BISACODYL 10 MG SUPP RECTAL ONE (13:45)
[2016-10-25] MEDS: OLANZapine 10 MG TAB PO SCH (21:00)
[2016-10-26 03:07] VITALS: BP 132/68; PULSE 97; RESP 20; TEMP 98; O2SAT 94
[2016-10-26 04:00] VITALS: BP 120/61; PULSE 99; RESP 18; TEMP 100.1; O2SAT 95
--- NOTE | 2016-10-26 06:24 | PD.ORT.PN ---
Subjective Subjective Remarks POD 2 s/p ORIF right ankle doing well. pain controlled. no complaints. Objective Vitals Vital Signs Date Time Temp Pulse Resp B/P Pulse Ox O2 Delivery O2 Flow Rate FiO2 10/26/16 04:00 100.1 99 18 120/61 95 10/25/16 21:25 97.2 103 22 138/65 92 10/25/16 16:00 98.5 98 18 118/68 94 10/25/16 12:00 98.2 99 18 112/61 94 10/25/16 08:00 99.0 99 18 94/62 92 I/O 10/25/16 10/25/16 10/25/16 10/26/16 10/26/16 10/26/16 07:00 15:00 23:00 07:00 15:00 23:00 Intake Total 120 ml 720 ml 240 ml Output Total 1100 ml 1200 ml Balance -980 ml 720 ml -960 ml Intake Oral 120 ml 720 ml 240 ml Output Urine Total 1100 ml 1200 ml # Voids 1 10 # Bowel Movements 0 0 0 Result Diagram: 10/25/16 0508 10/26/16 0423 Imaging Last 72 hours Impressions Ankle X-Ray 10/23/16 0000 Signed Impressions: Service Date/Time: October 22:14 - CONCLUSION: Fracture deformities of the distal fibula and medial malleolus with slight lateral displacement of the talus in relationship to the distal tibia. Bernardo Quiñones MD Ankle X-Ray 10/23/16 0000 Signed Impressions: Service Date/Time: October 21:06 - CONCLUSION: Persistent posterior and lateral subluxation of the talus in relationship to the tibia. The alignment is substantially improved. Bernardo Quiñones MD Ankle X-Ray 10/23/16 0000 Signed Impressions: Service Date/Time: October 20:18 - CONCLUSION: Fractures and dislocation at the ankle and distal fibula and tibia as described above. Bernardo Quiñones MD Objective Remarks Right lower extremity: Splint intact, clean dry with no drainage. Intact sensation in all toes. With good capillary refills Assessment & Plan Assessment and Plan Right trimalleolar ankle fracture POD 2 ORIF Nonweightbearing right lower extremity Maintain splint Elevation and ice Plan for discharge to assisted living when medically stable Orthopedically cleared for discharge Follow-up with Dr. Geiger or PA in 2 weeks Antonio West October 26, 2016 06:24
[2016-10-26 08:00] VITALS: BP 119/64; PULSE 103; RESP 19; TEMP 98.1; O2SAT 96
[2016-10-26] MEDS: CALCIUM/VITAMIN D 250 MG/125 U TAB PO SCH (08:43)
[2016-10-26] MEDS: ATORVASTATIN 20 MG TAB PO SCH (08:43)
[2016-10-26] MEDS: QUEtiapine FUMARATE 25 MG TAB PO SCH (08:43)
[2016-10-26] MEDS: CHOLECALCIFEROL (VIT D3) 1000 UNIT TAB PO SCH (08:43)
[2016-10-26] MEDS: ENOXAPARIN SODIUM 40 MG/0.4 ML SYRINGE SQ SCH (08:43)
[2016-10-26] MEDS: FLUoxetine HCL 20 MG CAP PO SCH (08:43)
[2016-10-26] MEDS: busPIRone HCL 10 MG TAB PO SCH (08:49)
[2016-10-26] MEDS: SODIUM CHLORIDE 0.9% FLUSH 10 ML FLUSH IV FLUSH SCH (08:56)
--- NOTE | 2016-10-26 09:44 | HHI.PR ---
Subjective Remarks resting up in chair Awake understands that she possibly will discharge to [facility] low grade fever, documented rt. leg wrapped, immobilized, CDI constipation resolved, BM yesterday, no impaction noted (Ila Reddy) Objective Objective Results - Vital Signs Date Time Temp Pulse Resp B/P Pulse Ox O2 Delivery O2 Flow Rate FiO2 10/26/16 08:00 98.1 103 19 119/64 96 10/26/16 04:00 100.1 99 18 120/61 95 10/25/16 21:25 97.2 103 22 138/65 92 10/25/16 16:00 98.5 98 18 118/68 94 10/25/16 12:00 98.2 99 18 112/61 94 I/O 10/25/16 10/25/16 10/25/16 10/26/16 10/26/16 10/26/16 07:00 15:00 23:00 07:00 15:00 23:00 Intake Total 120 ml 720 ml 240 ml Output Total 1100 ml 1200 ml Balance -980 ml 720 ml -960 ml Intake Oral 120 ml 720 ml 240 ml Output Urine Total 1100 ml 1200 ml # Voids 1 10 # Bowel Movements 0 0 0 (Ila Reddy) Result Diagram: 10/25/16 0508 10/26/16 0423 ROS General: Weakness (right ankle nonweightbearing), Other (10 point ROS done, positives noted low-grade fever without leukocytosis, nonweightbearing right ankle, other systems unremarkable) GI: BM (yesterday) (Ila Reddy) Physical Exam Physical Exam PHYSICAL EXAMINATION GENERAL: This is a well-developed, well-nourished female who appears to be in no acute distress. She is awake, hungry HEAD: Normocephalic without any lesion or mass noted. Facial features appear symmetric. OROPHARYNGEAL: Oropharynx without erythema or edema. NECK: Supple. No nuchal rigidity or lymphadenopathy. Trachea midline without deviation. CARDIAC: Regular rhythm, regular rate, S1 and S2 are heard. LUNGS: Clear to auscultation bilaterally. No wheezes or rhonchi noted ABDOMEN: Soft, nontender, no organomegaly or masses. Bowel sounds active EXTREMITIES: Mild right ankle edema. Pulses equal bilateral. Right ankle and lower extremity wrapped and secured, clean dry and intact NEUROLOGICAL: Patient mood and affect appropriate. SKIN:Warm and moist Objective Remarks I'm hungry this morning. (Ila Reddy) A/P Assessment and Plan (1) Fracture, ankle (2) Depression (3) HLD (hyperlipidemia) (4) Schizophrenia (5) Renal insufficiency post-op Open reduction internal fixation right ankle fractures with syndesmotic fixation / orthopedic consult , appreciate input, cleared today from ortho standput. Continue pain management post op care management Discharge planning being reviewed for [facility] Bowel regimen , constipation treated yesterday Large BM without impaction, monitor Hypokalemia, mild, 3. 5 Resolved Depression, schizophrenia, stable Continue home medications Lovenox for DVT prophylaxis Discharge planning, 3008 on chart CM consult for SNF rehab. Non wt. bearing rt. leg, brace on Case management looking at options, possible [facility] today Discussed with nurse Discussed with patient Specimen Dr. Turner, patient seen on his behalf (Ila Reddy) Assessment and Plan pt is seen & examined d/w PT d/w Ila medically stable for d.c d/c to SNF see [facility] see [facility] f/u pcp f/u ortho see orders (Kel Turner MD) Ila Reddy October 26, 2016 09:44 Kel Turner MD October 26, 2016 11:49
[2016-10-26] MEDS: SODIUM CHLOR 0.9% 1000 ML INJ 1,000 ML IV SCH ×2 (10:00)
[2016-10-26] MEDS ORDERED: QUET1TAB7 PO (11:52)
[2016-10-26] MEDS ORDERED: OLAN10TA PO (11:52)
[2016-10-26 12:00] VITALS: BP 121/68; PULSE 100; RESP 18; TEMP 99; O2SAT 95
--- NOTE | 2016-10-26 14:33 | HHI.DS ---
Discharge Summary Admission Date October 23, 2016 at 21:25 Discharge Date: October 26, 2016 Admitting Diagnosis R Ankle Fx (1) Fracture, ankle Diagnosis: Principal (2) Depression Diagnosis: Secondary (3) HLD (hyperlipidemia) Diagnosis: Secondary (4) Schizophrenia Diagnosis: Secondary (5) Renal insufficiency Diagnosis: Principal Procedures internal ORIF rt. ankle Brief History This was a 66-year-old female from a local assisted living facility, had significant past medical history of schizophrenia, depression, hyperlipidemia. Patient presented to the emergency room after she had a fall and fracture right ankle. She had significant deformity and pain. Denied any preceding symptoms prior to the fall, indicated she was leaning against a wall when her ankle twisted. She did not hit her head, no neck pain. No loss of consciousness. Denied any recent illnesses, no fever, no chills, no chest pain, shortness of breath. CBC/BMP: 10/25/16 0508 10/26/16 0423 Significant Findings Laboratory Tests Test 10/23/16 10/25/16 20:53 05:08 Hemoglobin 11.5 GM/DL 10.0 GM/DL (11.6-15.3) (11.6-15.3) Platelet Count 121 TH/MM3 102 TH/MM3 (150-450) (150-450) Monocytes (%) (Auto) 11.9 % (0.0-8.0) Activated Partial 23.9 SEC Thromboplast Time (24.3-30.1) Chloride Level 110 MEQ/L 108 MEQ/L (98-107) (98-107) Creatinine 1.11 MG/DL (0.50-1.00) Estimat Glomerular Filtration 49 ML/MIN (>89) 67 ML/MIN (>89) Rate Random Glucose 112 MG/DL (74-106) Calcium Level 7.7 MG/DL 7.8 MG/DL (8.5-10.1) (8.5-10.1) Total Bilirubin 0.1 MG/DL (0.2-1.0) Total Protein 6.0 GM/DL (6.4-8.2) Albumin 2.7 GM/DL (3.4-5.0) Red Blood Count 3.49 MIL/MM3 (4.00-5.30) Hematocrit 29.8 % (35.0-46.0) Potassium Level 3.3 MEQ/L (3.5-5.1) Blood Urea Nitrogen 6 MG/DL (7-18) Imaging Last Impressions Ankle X-Ray 10/24/16 0000 Signed Impressions: Service Date/Time: Monday, October 24, 2016 08:23 - CONCLUSION: Spot images obtained during right ankle ORIF, as above. Bernardo Robledo MD PE at Discharge PHYSICAL EXAMINATION GENERAL: This was a well-developed, well-nourished female who appeared to be in no acute distress. She was awake, hungry HEAD: Normocephalic without any lesion or mass noted. Facial features appear symmetric. OROPHARYNGEAL: Oropharynx without erythema or edema. NECK: Supple. No nuchal rigidity or lymphadenopathy. Trachea midline without deviation. CARDIAC: Regular rhythm, regular rate, S1 and S2 are heard. LUNGS: Clear to auscultation bilaterally. No wheezes or rhonchi noted ABDOMEN: Soft, nontender, no organomegaly or masses. Bowel sounds active EXTREMITIES: Mild right ankle edema. Pulses equal bilateral. Right ankle and lower extremity wrapped and secured, clean dry and intact NEUROLOGICAL: Patient mood and affect appropriate. SKIN:Warm and moist Hospital Course Patient was evaluated in emergency room, laboratory workup was completed. Unremarkable except for mild elevation in creatinine, 1.11. Imaging studies were completed. She was found with a displaced right ankle trimalleolar fracture. Orthopedic evaluated patient, surgery was recommended. Patient underwent open reduction internal fixation right ankle fractures with syndesmotic fixation. Patient was evaluated postop, she was awake alert oriented 3. Denied any pain at this time. She was tolerating meals well, no nausea, no vomiting. Patient was admitted for further evaluation and treatment. These are the diagnoses that were used to treat this patient and direct her plan of care during this hospital stay. (1) Fracture, ankle (2) Depression (3) HLD (hyperlipidemia) (4) Schizophrenia (5) Renal insufficiency post-op Open reduction internal fixation right ankle fractures with syndesmotic fixation 10/24, day of admission orthopedic consult , appreciate input, cleared today from ortho standput. On Continue pain management post op care management Discharge planning being reviewed for [facility] Bowel regimen , constipation treated 10/25/16 Large BM without impaction, monitor Hypokalemia, mild, treated with oral potassium Potassium rechecked next a.m. , 3.5 , resolved Resolved Depression, schizophrenia, stable Continue home medications Lovenox for DVT prophylaxis Discharge planning, 3008 on chart CM consult for SNF rehab. Non wt. bearing rt. leg, brace on Case management looking at options, possible [facility] Cu[facility] today, reviewing paperwork for admission Patient has had activity increased has been up in chair for the past 48 hours tolerated well, she is nonweightbearing on her right ankle, and will need strengthening and assistance with her mobility. Dietary regimen as before. Assessment and visit abdomen per Dr. turner on 10/26/16 pt is seen & examined d/w PT d/w Ila medically stable for d.c d/c to SNF see MRS see [facility] f/u pcp f/u ortho Ila Reddy October 26, 2016 09:44 Kel Turner MD October 26, 2016 11:49 Pt Condition on Discharge: Stable Discharge Disposition: Discharge to SNF Discharge Instructions DIET: Follow Instructions for: Heart Healthy Diet Fluid Restrictions: nione Activities you can perform: Non Weight Bearing Follow up Referrals: Orthopedics - 2 Weeks @ [facility] with William Baldwin MD PCP Follow-up - 1 Week New Medications: Calcium Carbonate-Vitamin D (Calcium 600+D 200) 600-200 Mg-Unit Tab 1 TAB PO BID Nutritional Supplement #60 Ref 2 TAB Cholecalciferol (Vitamin D3) 2,000 Unit Cap 2000 UNITS PO DAILY Nutritional Supplement #56 Ref 0 CAP Ergocalciferol (Ergocalciferol) 50,000 Unit Cap 17297 UNITS PO Q7D Nutritional Supplement #56 CAP Hydrocodone-Acetaminophen ([place]) 7.5-325 mg Tab 1 TAB PO Q4H PRN PAIN #50 Ref 0 TAB Walker/Adult/Folding (Walker/Adult/Folding) 1 Mis Mis 1 EA .ROUTE DIRECTED #1 Ref 0 EA Olanzapine (Olanzapine) 10 Mg Tab 20 MG PO HS schizophrenia #30 TAB Quetiapine (Quetiapine) 25 Mg Tab 50 MG PO DAILY schizophrenia #30 TAB Continued Medications: Atorvastatin (Atorvastatin) 20 Mg Tab 20 MG PO DAILY Cholesterol Management #30 Ref 0 TAB Buspirone (Buspirone) 10 Mg Tab 10 MG PO BID Anxiety Ref 0 TAB Fluoxetine (Fluoxetine) 40 Mg Cap 40 CAP PO DAILY #30 Ref 0 CAP Discontinued Medications: Olanzapine (Olanzapine) 20 Mg Tab 20 MG PO HS #30 Ref 0 TAB Ozfznxiydvjzh-Ypeaqwuysjctvh-Eghdfbtambu Liq (Tussin Cf Liq) 5-10-100 Mg/5 Ml Liq 10 ML PO TID PRN COUGH AND/OR COLD SYMPTOMS #1 Ref 0 BOTTLE Quetiapine (Quetiapine) 50 Mg Tab 50 MG PO DAILY #30 Ref 0 TAB Ila Reddy October 26, 2016 14:33
[2016-10-26 16:00] VITALS: BP 133/74; PULSE 96; RESP 18; TEMP 98.3; O2SAT 94
== END 2016-10-26 20:00 | DRG 494 ==
LOC: NEPD 20:05 → NEDA 21:25 → N06B 22:44 → N06A 10-26 06:10
PROVIDERS: ADMIT Specialist; ATTEND Specialist
PROC: 0QSG04Z Reposition Right Tibia with Internal Fixation Device, Open Approach (ICD-10-PCS; 2016-10-24)
PROC: 0QSJ04Z Reposition Right Fibula with Internal Fixation Device, Open Approach (ICD-10-PCS; principal; 2016-10-24 07:21)
DX: S82.851A Displaced trimalleolar fracture of right lower leg, initial encounter for closed fracture (principal); E78.00 Pure hypercholesterolemia, unspecified; E78.5 Hyperlipidemia, unspecified; N28.9 Disorder of kidney and ureter, unspecified; K59.00 Constipation, unspecified; E87.6 Hypokalemia; F17.200 Nicotine dependence, unspecified, uncomplicated; F20.9 Schizophrenia, unspecified; F32.9 Major depressive disorder, single episode, unspecified; F41.9 Anxiety disorder, unspecified; W01.0XXA Fall on same level from slipping, tripping and stumbling without subsequent striking against object, initial encounter; Y92.199 Unspecified place in other specified residential institution as the place of occurrence of the external cause
CPT/HCPCS: 27840; 73600; 76000; 80048; 80053; 84132; 85025; 85027; 85610; 85730; 94150; 94640; 94770; C1713; J0131; J0690; J1580; J1650; J2270; J2370; J2405; J3010; J3370; J7030; J7050; J7613

== ENCOUNTER 2016-11-13 05:44 | Inpatient (IN) | payer MEDICARE ==
[~2016-11-13] VITALS: Ht 167.6 cm; Wt 81.2 kg
[2016-11-13] VITALS (8 sets, daily range): BP systolic 86–143; BP diastolic 54–64; PULSE 74–111; RESP 16–28; TEMP 97.8–101.3; O2SAT 94–99
[~2016-11-13 05:44] MED LIST changes: +ATOR20TA15 PO; -BUSP10 PO; +BUSP10TA PO; -CALC600T37 PO; +CALCTAB19 PO; +ERGO1CAP30 PO; +HYDR-3288 PO; -LOVA20TA PO; +OLAN10TA PO; +QUET1TAB7 PO; -QUET25 PO; +VITA2000 PO; +WALKER/ADULT/FO1 MIS; -ZYPR20TA PO
[2016-11-13] MEDS ORDERED: SODIUM CHLOR 0.9% 1000 ML INJ 1,000 ML IV ONE (06:00)
[2016-11-13] MEDS ORDERED: SODIUM CHLORIDE 0.9% FLUSH 10 ML FLUSH IVF PRN (06:00)
[2016-11-13] MEDS ORDERED: ONDANSETRON HCL 4 MG/2 ML VIAL IV PUSH ONE (06:00)
[2016-11-13 06:16] LABS: AUTOMATED NEUTROPHIL # 12.3 TH/MM3 (1.8-7.7); BASOPHIL # 0.1 TH/MM3 (0-0.2); BASOPHIL % 0.7 % (0.0-2.0); EOSINOPHIL % 0.1 % (0.0-4.0); HEMATOCRIT 32.4 % (35.0-46.0); HEMO FLAGS DIFF FINAL; LYMPH % 10.9 % (9.0-44.0); LYMPHOCYTE # 1.7 TH/MM3 (1.0-4.8); MEAN CELL VOLUME 85.1 FL (80.0-100.0); MEAN CORPUSCULAR HEMOGLOBIN 27.6 PG (27.0-34.0); MEAN CORPUSCULAR HGB CONC 32.4 % (32.0-36.0); MONO % 11.2 % (0.0-8.0); NEUT % 77.1 % (16.0-70.0); PLATELET COUNT 249 TH/MM3 (150-450); RED BLOOD COUNT 3.81 MIL/MM3 (4.00-5.30); RED CELL DISTRIBUTION WIDTH 14.2 % (11.6-17.2); WHITE BLOOD COUNT 15.9 TH/MM3 (4.0-11.0)
--- NOTE | 2016-11-13 06:17 | PD ---
HPI Chief Complaint: Cardiac Complaint Time Seen by Provider: 05:52 Travel History International Travel<30 days: No Contact w/Intl Traveler<30days: No Traveled to known affect area: No History of Present Illness HPI 66yo F with PMH of bipolar disorder, HLD presents to the ED with c/o chest pain since last night about 10pm. States it is pressure like, midsternal, worst with breathing and intermittent. States it radiates throughout the chest. Associated with sob, nausea, and NBNB vomiting. Pt was sent from [facility] and was there for rehab for right ankle fracture about 1 month ago. Pt was in chest pain center 07/09/15. As per our record, she had abnormal stress test in and underwent cardiac cath that showed normal coronaries. Denies history of DVT, PE. PFSH Past Medical History Anxiety: Yes Depression: Yes Heart Rhythm Problems: No Cardiac Catheterization: Yes (PT DOES NOT RECALL) Cardiovascular Problems: No High Cholesterol: Yes Diabetes: No Diminished Hearing: No Hypertension: No Psychiatric: Yes (SCHIZOPHRENIA) Schizophrenia: Yes ?: Not Menopausal: Yes : 1 Para: 0 Miscarriage: 0 : 0 Past Surgical History Section: Yes Tonsillectomy: Yes Social History Alcohol Use: Yes (OCCAISIONAL) Tobacco Use: No Substance Use: No (Patient denies any abuse or drug experimentation.) Allergies-Medications (Allergen,Severity, Reaction): Coded Allergies: No Known Allergies (Unverified , 10/23/16) Reported Meds & Prescriptions Reported Meds & Active Scripts Active Olanzapine 10 Mg Tab 20 Mg PO HS Quetiapine (Quetiapine Fumarate) 25 Mg Tab 50 Mg PO DAILY Walker/Adult/Folding (Device) 1 Mis Mis 1 Ea .ROUTE DIRECTED Calcium 600+D 200 (Calcium Carbonate-Vitamin D) 600-200 Mg-Unit Tab 1 Tab PO BID Vitamin D3 (Cholecalciferol) 2,000 Unit Cap 2,000 Units PO DAILY Ergocalciferol 50,000 Unit Cap 50,000 Units PO Q7D Reported Fluoxetine (Fluoxetine HCl) 40 Mg Cap 40 Cap PO DAILY Buspirone (Buspirone HCl) 10 Mg Tab 10 Mg PO BID Atorvastatin (Atorvastatin Calcium) 20 Mg Tab 20 Mg PO DAILY Review of Systems Except as stated in HPI: all other systems reviewed are Neg Physical Exam Narrative GENERAL: 66yo F in mild distress. SKIN: Focused skin assessment warm/dry. HEAD: Atraumatic. Normocephalic. EYES: Pupils equal and round. No scleral icterus. No injection or drainage. ENT: No nasal bleeding or discharge. Mucous membranes pink and moist. NECK: Trachea midline. No JVD. CARDIOVASCULAR: Regular rate and rhythm. No murmur appreciated. RESPIRATORY: + accessory muscle use. Crackles in left lung base. GASTROINTESTINAL: Abdomen soft, non-tender, nondistended. No rebound tenderness or guarding. MUSCULOSKELETAL: RLE: In case. Left leg: DP 2+. No edema. NEUROLOGICAL: Awake and alert. No obvious cranial nerve deficits. Motor grossly within normal limits. Normal speech. PSYCHIATRIC: Appropriate mood and affect; insight and judgment normal. Data Data Last Documented VS Vital Signs Date Time Temp Pulse Resp B/P Pulse Ox O2 Delivery O2 Flow Rate FiO2 11/13/16 07:13 104 19 121/58 99 Nasal Cannula 3 11/13/16 05:51 97.8 Orders Basic Metabolic Panel (Bmp) (11/13/16 05:48) Ckmb (Isoenzyme) Profile (11/13/16 05:48) Complete Blood Count With Diff (11/13/16 05:48) Magnesium (Mg) (11/13/16 05:48) Prothrombin Time / Inr (Pt) (11/13/16 05:48) Act Partial Throm Time (Ptt) (11/13/16 05:48) Troponin I (11/13/16 05:48) Lipase (11/13/16 05:48) Chest, Single Ap (11/13/16 05:48) Ecg Monitoring (11/13/16 05:48) Bilateral Bp Monitoring (11/13/16 05:48) Iv Access Insert/Monitor (11/13/16 05:48) Oximetry (11/13/16 05:48) Oxygen Administration (11/13/16 05:48) Sodium Chloride 0.9% Flush (Ns Flush) (11/13/16 06:00) Sodium Chlor 0.9% 1000 Ml Inj (Ns 1000 M (11/13/16 06:00) Ondansetron Inj (Zofran Inj) (11/13/16 06:00) Ct Pulmonary Angiogram (11/13/16 ) Electrocardiogram (11/13/16 ) Iohexol 350 Inj (Omnipaque 350 Inj) (11/13/16 07:43) Admit Order (Ed Use Only) (11/13/16 08:42) Enoxaparin Inj (Lovenox Inj) (11/13/16 08:45) Labs Laboratory Tests Test 11/13/16 06:00 White Blood Count 15.9 TH/MM3 Red Blood Count 3.81 MIL/MM3 Hemoglobin 10.5 GM/DL Hematocrit 32.4 % Mean Corpuscular Volume 85.1 FL Mean Corpuscular Hemoglobin 27.6 PG Mean Corpuscular Hemoglobin 32.4 % Concent Red Cell Distribution Width 14.2 % Platelet Count 249 TH/MM3 Mean Platelet Volume 8.9 FL Neutrophils (%) (Auto) 77.1 % Lymphocytes (%) (Auto) 10.9 % Monocytes (%) (Auto) 11.2 % Eosinophils (%) (Auto) 0.1 % Basophils (%) (Auto) 0.7 % Neutrophils # (Auto) 12.3 TH/MM3 Lymphocytes # (Auto) 1.7 TH/MM3 Monocytes # (Auto) 1.8 TH/MM3 Eosinophils # (Auto) 0.0 TH/MM3 Basophils # (Auto) 0.1 TH/MM3 CBC Comment DIFF FINAL Differential Comment Prothrombin Time 10.9 SEC Prothromb Time International 1.0 RATIO Ratio Activated Partial 23.8 SEC Thromboplast Time Sodium Level 139 MEQ/L Potassium Level 4.2 MEQ/L Chloride Level 106 MEQ/L Carbon Dioxide Level 23.7 MEQ/L Anion Gap 9 MEQ/L Blood Urea Nitrogen 12 MG/DL Creatinine 0.88 MG/DL Estimat Glomerular Filtration 64 ML/MIN Rate Random Glucose 134 MG/DL Calcium Level 9.2 MG/DL Magnesium Level 2.1 MG/DL Total Creatine Kinase 19 U/L Troponin I LESS THAN 0.02 NG/ML Lipase 100 U/L [facility] Medical Decision Making Medical Screen Exam Complete: Yes Emergency Medical Condition: Yes Interpretation(s) EKG: Sinus tachycardia at 111bpm. LAD. Poor baseline. Differential Diagnosis ACS vs. Pneumonia vs. PE vs. GERD vs. gastritis Narrative Course 66yo F here with chest pain. Chest pain is atypical and concerning for PE since pt had recent surgery and was in rehab. Labs reviewed, leukocytosis. Troponin negative. Sign out to next team to follow up CTA chest and disposition. Diagnosis Primary Impression: Pulmonary embolism Qualified Code: I26.99 - Other acute pulmonary embolism without acute cor pulmonale Stephania Samuel DO November 13, 2016 06:17
[2016-11-13 06:29] LABS: APTT (PATIENT) 23.8 SEC (24.3-30.1); PROTHROMBIN TIME - PATIENT 10.9 SEC (9.8-11.6)
--- NOTE | 2016-11-13 06:37 | RADRPT ---
EXAM DATE/TIME: 11/13/2016 06:02 [facility] COMPARISON: CHEST SINGLE AP, June 28, 2015, 18:32. INDICATIONS : Chest pain. MEDICAL HISTORY : None. SURGICAL HISTORY : None. ENCOUNTER: Initial ACUITY: 1 day PAIN SCORE: 6/10 LOCATION: Bilateral chest FINDINGS: A single view of the chest demonstrates the lungs to be symmetrically aerated without evidence of mas s, infiltrate or effusion other than small bibasilar infiltrates right greater than left. The cardio mediastinal contours are unremarkable. Osseous structures are intact. CONCLUSION: Normal examination except for mild bibasilar atelectasis right greater than left. Baljit Hernandez MD on November 13, 2016 at 6:35 Board Certified Radiologist. This report was verified electronically.
[2016-11-13 07:07] LABS: ANION GAP 9 MEQ/L (5-15); BICARBONATE 23.7 MEQ/L (21.0-32.0); BLOOD UREA NITROGEN 12 MG/DL (7-18); CHLORIDE 106 MEQ/L (98-107); GLOMERULAR FILTRATION RATE 64 ML/MIN (>89); MAGNESIUM 2.1 MG/DL (1.5-2.5); POTASSIUM 4.2 MEQ/L (3.5-5.1); SODIUM (NA) 139 MEQ/L (136-145)
[2016-11-13 07:13] LABS: CREATINE KINASE 19 U/L (26-192)
[2016-11-13] MEDS ORDERED: IOHEXOL 350 MG/ML 50 ML BTL (for RAD DIAG) IV ONE (07:43)
--- NOTE | 2016-11-13 07:54 | RADRPT ---
EXAM DATE/TIME: 11/13/2016 07:31 [facility] COMPARISON: CHEST SINGLE AP, November 13, 2016, 6:02. INDICATIONS : Chest pain and dyspnea IV CONTRAST: 50 cc Omnipaque 350 (iohexol) IV RADIATION DOSE: 23 CTDIvol (mGy) MEDICAL HISTORY : Cardiovascular disease. SURGICAL HISTORY : section. ENCOUNTER: Initial ACUITY: 1 day PAIN SCALE: 5/10 LOCATION: chest TECHNIQUE: Volumetric scanning of the chest was performed using a pulmonary embolism protocol MIP images were re constructed. Using automated exposure control and adjustment of the mA and/or kV according to patien t size, radiation dose was kept as low as reasonably achievable to obtain optimal diagnostic quality images. FINDINGS: PULMONARY ARTERIES: The main pulmonary artery and right and left main pulmonary arteries are patent. There are filling de fects in the right lobe pulmonary artery. There are smaller apparent filling defects in the left lowe r lobe pulmonary arteries. LUNGS: There is consolidation in both lung bases with air bronchograms. PLEURAE: There is a small right pleural effusion. MEDIASTINUM: There is good visualization of the great vessels of the middle mediastinum. No evidence of mediastin al or hilar adenopathy/mass. The heart size is mildly enlarged. MUSCULOSKELETAL: Within normal limits for patient age. MISCELLANEOUS: The visualized upper abdominal organs demonstrate no acute abnormality. A small hiatal hernia is note d. CONCLUSION: 1. Pulmonary emboli. This is greatest in the right lower lobe pulmonary arteries. There is apparent m ilder emboli in left lower lobe pulmonary arteries. 2. Consolidation in both posterior lung bases with small right effusion. 3. Cardiomegaly. 4. Hiatal hernia. Jonathon Esqueda MD on November 13, 2016 at 7:48 Board Certified Radiologist. This report was verified electronically.
--- NOTE | 2016-11-13 08:07 | PD ---
Physical Exam Narrative GENERAL: Well-nourished, well-developed patient. SKIN: Warm and dry. HEAD: Normocephalic and atraumatic. EYES: No injection or drainage. ENT: No nasal drainage noted. NECK: Supple, trachea midline. CARDIOVASCULAR: Regular rate RESPIRATORY: no increased effort. No accessory muscle use. NEUROLOGICAL: Awake and alert. moves all extremities. Normal speech. Data Data Last Documented VS Vital Signs Date Time Temp Pulse Resp B/P Pulse Ox O2 Delivery O2 Flow Rate FiO2 11/13/16 07:13 104 19 121/58 99 Nasal Cannula 3 11/13/16 05:51 97.8 Orders Basic Metabolic Panel (Bmp) (11/13/16 05:48) Ckmb (Isoenzyme) Profile (11/13/16 05:48) Complete Blood Count With Diff (11/13/16 05:48) Magnesium (Mg) (11/13/16 05:48) Prothrombin Time / Inr (Pt) (11/13/16 05:48) Act Partial Throm Time (Ptt) (11/13/16 05:48) Troponin I (11/13/16 05:48) Lipase (11/13/16 05:48) Chest, Single Ap (11/13/16 05:48) Ecg Monitoring (11/13/16 05:48) Bilateral Bp Monitoring (11/13/16 05:48) Iv Access Insert/Monitor (11/13/16 05:48) Oximetry (11/13/16 05:48) Oxygen Administration (11/13/16 05:48) Sodium Chloride 0.9% Flush (Ns Flush) (11/13/16 06:00) Sodium Chlor 0.9% 1000 Ml Inj (Ns 1000 M (11/13/16 06:00) Ondansetron Inj (Zofran Inj) (11/13/16 06:00) Ct Pulmonary Angiogram (11/13/16 ) Electrocardiogram (11/13/16 ) Iohexol 350 Inj (Omnipaque 350 Inj) (11/13/16 07:43) Admit Order (Ed Use Only) (11/13/16 08:42) Enoxaparin Inj (Lovenox Inj) (11/13/16 08:45) Labs Laboratory Tests Test 11/13/16 06:00 White Blood Count 15.9 TH/MM3 Red Blood Count 3.81 MIL/MM3 Hemoglobin 10.5 GM/DL Hematocrit 32.4 % Mean Corpuscular Volume 85.1 FL Mean Corpuscular Hemoglobin 27.6 PG Mean Corpuscular Hemoglobin 32.4 % Concent Red Cell Distribution Width 14.2 % Platelet Count 249 TH/MM3 Mean Platelet Volume 8.9 FL Neutrophils (%) (Auto) 77.1 % Lymphocytes (%) (Auto) 10.9 % Monocytes (%) (Auto) 11.2 % Eosinophils (%) (Auto) 0.1 % Basophils (%) (Auto) 0.7 % Neutrophils # (Auto) 12.3 TH/MM3 Lymphocytes # (Auto) 1.7 TH/MM3 Monocytes # (Auto) 1.8 TH/MM3 Eosinophils # (Auto) 0.0 TH/MM3 Basophils # (Auto) 0.1 TH/MM3 CBC Comment DIFF FINAL Differential Comment Prothrombin Time 10.9 SEC Prothromb Time International 1.0 RATIO Ratio Activated Partial 23.8 SEC Thromboplast Time Sodium Level 139 MEQ/L Potassium Level 4.2 MEQ/L Chloride Level 106 MEQ/L Carbon Dioxide Level 23.7 MEQ/L Anion Gap 9 MEQ/L Blood Urea Nitrogen 12 MG/DL Creatinine 0.88 MG/DL Estimat Glomerular Filtration 64 ML/MIN Rate Random Glucose 134 MG/DL Calcium Level 9.2 MG/DL Magnesium Level 2.1 MG/DL Total Creatine Kinase 19 U/L Troponin I LESS THAN 0.02 NG/ML Lipase 100 U/L [facility] Supervised Visit with KELLEY: No Interpretation(s) Last 24 hours Impressions Chest X-Ray 11/13/16 0548 Signed Impressions: Service Date/Time: October 06:02 - CONCLUSION: Normal examination except for mild bibasilar atelectasis right greater than left. Baljit Hernandez MD CT Angiography 11/13/16 0000 Signed Impressions: Service Date/Time: October 07:31 - CONCLUSION: 1. Pulmonary emboli. This is greatest in the right lower lobe pulmonary arteries. There is apparent milder emboli in left lower lobe pulmonary arteries. 2. Consolidation in both posterior lung bases with small right effusion. 3. Cardiomegaly. 4. Hiatal hernia. Jonathon Esqueda MD CBC & BMP Diagram 5/25/17 06:00 Narrative Course signed over to me to follow workup and admit, ct with pe, given lovenox after discussion with admitting team and patient updated Physician Communication Physician Communication antonio states to admit to dr rene and dose with lovenox Diagnosis Primary Impression: Pulmonary embolism Qualified Code: I26.99 - Other acute pulmonary embolism without acute cor pulmonale Desi Pryor MD November 13, 2016 08:07
[2016-11-13] MEDS ORDERED: ENOXAPARIN SODIUM 80 MG/0.8 ML SYRINGE SQ ONE (08:45)
[2016-11-13] MEDS ORDERED: NALOXONE HCL 0.4 MG/ML AMP IV PRN (08:45)
[2016-11-13] MEDS ORDERED: MAGNESIUM HYDROXIDE SUSP 30 ML CUP PO PRN (08:45)
[2016-11-13] MEDS ORDERED: ONDANSETRON HCL 4 MG/2 ML VIAL IVP PRN (08:45)
[2016-11-13] MEDS ORDERED: ACETAMINOPHEN 325 MG TAB PO PRN (08:45)
[2016-11-13] MEDS ORDERED: SODIUM CHLORIDE 0.9% FLUSH 10 ML FLUSH IV FLUSH PRN (08:45)
[2016-11-13] MEDS: SODIUM CHLOR 0.9% 1000 ML INJ 1,000 ML IV SCH ×2 (09:57→21:50)
[2016-11-13] MEDS: ATORVASTATIN 20 MG TAB PO SCH (10:14)
[2016-11-13] MEDS: CALCIUM/VITAMIN D 250 MG/125 U TAB PO SCH ×2 (10:14→19:39)
[2016-11-13] MEDS: FLUoxetine HCL 20 MG CAP PO SCH (10:14)
[2016-11-13] MEDS: QUEtiapine FUMARATE 25 MG TAB PO SCH (10:14)
[2016-11-13] MEDS: busPIRone HCL 10 MG TAB PO SCH ×2 (10:15→19:40)
[2016-11-13] MEDS: CHOLECALCIFEROL (VIT D3) 1000 UNIT TAB PO SCH (10:15)
--- NOTE | 2016-11-13 10:29 | HHI.HP ---
[facility] Service [facility] Primary Care Physician Unknown Admission Diagnosis pe Diagnoses: Travel History International Travel<30 Days: No Contact w/Intl Traveler <30 Da: No Traveled to Known Affected Are: No Past Family Social History Allergies: Coded Allergies: No Known Allergies (Unverified , 10/23/16) Physical Exam Vital Signs Vital Signs Date Time Temp Pulse Resp B/P Pulse Ox O2 Delivery O2 Flow Rate FiO2 11/13/16 09:57 104 28 143/63 96 Nasal Cannula 3 11/13/16 07:13 104 19 121/58 99 Nasal Cannula 3 11/13/16 05:54 107 11/13/16 05:54 95 11/13/16 05:54 95 Nasal Cannula 2 11/13/16 05:51 97.8 111 18 94 Physical Exam GENERAL: This is a well-nourished, well-developed patient, in no apparent distress. SKIN: No rashes, ecchymoses or lesions. Cool and dry. HEAD: Atraumatic. Normocephalic. No temporal or scalp tenderness. EYES: Pupils equal round and reactive. Extraocular motions intact. No scleral icterus. No injection or drainage. ENT: Nose without bleeding, purulent drainage or septal hematoma. Throat without erythema, tonsillar hypertrophy or exudate. Uvula midline. Airway patent. NECK: Trachea midline. No JVD or lymphadenopathy. Supple, nontender, no meningeal signs. CARDIOVASCULAR: Regular rate and rhythm without murmurs, gallops, or rubs. RESPIRATORY: Clear to auscultation. Breath sounds equal bilaterally. No wheezes , rales, or rhonchi. GASTROINTESTINAL: Abdomen soft, non-tender, nondistended. No hepato-splenomegaly , or palpable masses. No guarding. MUSCULOSKELETAL: Extremities without clubbing, cyanosis, or edema. No joint tenderness, effusion, or edema noted. No calf tenderness. Negative Homans sign bilaterally. NEUROLOGICAL: Awake and alert. Cranial nerves II through XII intact. Motor and sensory grossly within normal limits. Five out of 5 muscle strength in all muscle groups. Normal speech. Laboratory Laboratory Tests Test 11/13/16 06:00 White Blood Count 15.9 Red Blood Count 3.81 Hemoglobin 10.5 Hematocrit 32.4 Mean Corpuscular Volume 85.1 Mean Corpuscular Hemoglobin 27.6 Mean Corpuscular Hemoglobin 32.4 Concent Red Cell Distribution Width 14.2 Platelet Count 249 Mean Platelet Volume 8.9 Neutrophils (%) (Auto) 77.1 Lymphocytes (%) (Auto) 10.9 Monocytes (%) (Auto) 11.2 Eosinophils (%) (Auto) 0.1 Basophils (%) (Auto) 0.7 Neutrophils # (Auto) 12.3 Lymphocytes # (Auto) 1.7 Monocytes # (Auto) 1.8 Eosinophils # (Auto) 0.0 Basophils # (Auto) 0.1 CBC Comment DIFF FINAL Differential Comment Prothrombin Time 10.9 Prothromb Time International 1.0 Ratio Activated Partial 23.8 Thromboplast Time Sodium Level 139 Potassium Level 4.2 Chloride Level 106 Carbon Dioxide Level 23.7 Anion Gap 9 Blood Urea Nitrogen 12 Creatinine 0.88 Estimat Glomerular Filtration 64 Rate Random Glucose 134 Calcium Level 9.2 Magnesium Level 2.1 Total Creatine Kinase 19 Troponin I LESS THAN 0.02 Lipase 100 Result Diagram: 11/13/16 0600 11/13/16 0600 Mary Bonds November 13, 2016 10:29
--- NOTE | 2016-11-13 10:31 | HHI.HP ---
HPI Service [facility] Primary Care Physician Unknown Admission Diagnosis pe Diagnoses: Chief Complaint: Chest pain Travel History International Travel<30 Days: No Contact w/Intl Traveler <30 Da: No Traveled to Known Affected Are: No History of Present Illness This is a 66-year-old female from a local assisted living facility, has significant past medical history of schizophrenia, depression, hyperlipidemia. Patient was recently admitted after she had a fall and had a right trimalleolar ankle fracture. She underwent a right ORIF on October 24, 2016. She had an uneventful postoperative course and was eventually discharged to rehabilitation facility. Patient presented to the emergency room today complaining of chest pressure, indicates its midsternum started yesterday around 10 PM. Indicates that the pain never goes away, it is persistent, rate 77. Denies any radiation, some palpitations. Does not increase with palpation. No diaphoresis. She's had some nausea and vomiting, approximately 3 times. No Hematemesis. No fever, no chills. Indicates physical therapy has been going fairly well. Patient was evaluated in emergency room, laboratory workup was completed. CBC remarkable for leukocytosis, WBC 15.9. BMP unremarkable. Troponin negative. Total creatinine kinase 19. Urine analysis was negative. CTA of the chest was significant for pulmonary emboli, greatest in the right lower lobe pulmonary arteries. There is up when necessary milder emboli and left lower lobe pulmonary arteries. Consolidation in both posterior lung bases with small right effusion. Cardiomegaly. Hiatal hernia. Chest x- ray showed normal examination except for mild bibasal atelectasis, right greater than left. Patient was noted tachycardic, heart rate 100s. Blood pressure stable, 120s over 50s. Sats 99% on 3 L. 94 on room air. Patient was given a one-time dose of Lovenox weight-based. Patient denies any prior history of pulmonary emboli. No history of malignancy. Thinks that her father may have had history of PE. Patient is now admitted for further evaluation and treatment. Review of Systems Constitutional: DENIES: Diaphoretic episodes, Fatigue, Fever, Weight gain, Weight loss, Chills, Dizziness, Change in appetite, Night Sweats Endocrine: DENIES: Abnorml menstrual pattern, Heat/cold intolerance, Polydipsia , Polyuria, Polyphagia Eyes: DENIES: Blurred vision, Diplopia, Eye inflammation, Eye pain, Vision loss , Photosensitivity, Double Vision Ears, nose, mouth, throat: DENIES: Tinnitus, Hearing loss, Vertigo, Nasal discharge, Oral lesions, Throat pain, Hoarseness, Ear Pain, Running Nose, Epistaxis, Sinus Pain, Toothache, Odynophagia Respiratory: DENIES: Apneas, Cough, Snoring, Wheezing, Hemoptysis, Sputum production, Shortness of breath Cardiovascular: COMPLAINS OF: Chest pain, Palpitations Gastrointestinal: DENIES: Abdominal pain, Black stools, Bloody stools, Constipation, Diarrhea, Nausea, Vomiting, Difficulty Swallowing, Anorexia Genitourinary: DENIES: Abnormal vaginal bleeding, Dysmenorrhea, Dyspareunia, Sexual dysfunction, Urinary frequency, Urinary incontinence, Urgency, Hematuria , Dysuria, Nocturia, Vaginal discharge Musculoskeletal: COMPLAINS OF: Joint pain, DENIES: Muscle aches, Stiffness, Joint Swelling, Back pain, Neck pain Integumentary: DENIES: Abnormal pigmentation, Pruritus, Rash, Nail changes, Breast masses, Breast skin changes, Nipple discharge Hematologic/lymphatic: DENIES: Bruising, Lymphadenopathy Immunologic/allergic: DENIES: Eczema, Urticaria Neurologic: DENIES: Abnormal gait, Headache, Localized weakness, Paresthesias, Seizures, Speech Problems, Tremor, Poor Balance Psychiatric: DENIES: Anxiety, Confusion, Mood changes, Depression, Hallucinations, Agitation, Suicidal Ideation, Homicidal Ideation, Delusions Past Family Social History Past Medical History Hyperlipidemia Manic-depressive Schizophrenia S/P fall with displaced right ankle trimalleolar fracture with syndesmosis disruption October 24 Past Surgical History cardiac cath STT 2015 tonsillectomy c section S/P Open reduction internal fixation right ankle fractures with syndesmotic fixation 10/24 Reported Medications Reported Meds & Active Scripts Active Olanzapine 10 Mg Tab 20 Mg PO HS Quetiapine (Quetiapine Fumarate) 25 Mg Tab 50 Mg PO DAILY Walker/Adult/Folding (Device) 1 Mis Mis 1 Ea .ROUTE DIRECTED Calcium 600+D 200 (Calcium Carbonate-Vitamin D) 600-200 Mg-Unit Tab 1 Tab PO BID Vitamin D3 (Cholecalciferol) 2,000 Unit Cap 2,000 Units PO DAILY Ergocalciferol 50,000 Unit Cap 50,000 Units PO Q7D Reported Fluoxetine (Fluoxetine HCl) 40 Mg Cap 40 Cap PO DAILY Buspirone (Buspirone HCl) 10 Mg Tab 10 Mg PO BID Atorvastatin (Atorvastatin Calcium) 20 Mg Tab 20 Mg PO DAILY Allergies: Coded Allergies: No Known Allergies (Unverified , 10/23/16) Active Ordered Medications Inpatient Medications Acetaminophen (Tylenol) 650 mg Q4H PRN PO TEMP > 100.4; Start 11/13/16 at 08:45 ; Stop 11/13/16 at 12:52; Status DC Acetaminophen 650 mg 650 mg Q6H PRN PO fever/PAIN 1-10 Last administered on 13:15; Start 11/13/16 at 12:45 Atorvastatin Calcium (Lipitor) 20 mg DAILY PO Last administered on 11/13/16 10 :14; Start 11/13/16 at 09:00 Azithromycin/ Sodium Chloride (Zithromax Inj/ NS 250 ml Inj) 250 ml @ 250 mls/ hr Q24H IV Last administered on 11/13/16 15:17; Start 11/13/16 at 14:00 Buspirone HCl (Buspar) 10 mg BID PO Last administered on 11/13/16 10:15; Start 11/13/16 at 09:00 Calcium/Vitamin D (Oscal-D 250-125) 250 mg BID PO Last administered on 10:14; Start 11/13/16 at 10:00 Ceftriaxone Sodium 1000 mg/ Sodium Chloride 100 ml @ 200 mls/hr Q24H IV Last administered on 11/13/16 13:15; Start 11/13/16 at 14:00 Cholecalciferol (Vitamin D3) 2,000 units DAILY PO Last administered on 10:15; Start 11/13/16 at 09:00 Enoxaparin Sodium (Lovenox Inj) 70 mg Q12H SQ ; Start 11/13/16 at 21:00; Stop at 22:00 Enoxaparin Sodium 75 mg 75 mg ONCE ONCE SQ Last administered on 11/13/16 09: 56; Start 11/13/16 at 08:45; Stop 11/13/16 at 08:46; Status DC Fluoxetine HCl (PROzac) 40 mg DAILY PO Last administered on 11/13/16 10:14; Start 11/13/16 at 09:00 Magnesium Hydroxide (Milk Of Magnesia Liq) 30 ml Q12H PRN PO MILD - MODERATE CONSTIPATION; Start 11/13/16 at 08:45 Morphine Sulfate 4 mg 4 mg Q4H PRN IV PUSH pain 6-10 Last administered on 13:39; Start 11/13/16 at 12:45; Stop 11/13/16 at 16:41; Status DC Naloxone HCl (Narcan Inj) 0.4 mg UNSCH PRN IV SEE LABEL COMMENTS; Start at 08:45 Olanzapine (ZyPREXA) 20 mg HS PO ; Start 11/13/16 at 21:00 Ondansetron HCl (Zofran Inj) 4 mg Q6H PRN IVP NAUSEA OR VOMITING; Start at 08:45 Quetiapine Fumarate (SEROquel) 50 mg DAILY PO Last administered on 11/13/16 10 :14; Start 11/13/16 at 10:00 Rivaroxaban (Xarelto) 15 mg BID PO ; Start 11/14/16 at 08:00 Sodium Chloride (NS 1000 ml Inj) 1,000 ml @ 75 mls/hr [id number] IV Last administered on 11/13/16 09:57; Start 11/13/16 at 08:45 Sodium Chloride (NS 500 ml Inj) 500 ml @ 0 mls/hr Q0M ONCE IV ; Start 11/13/16 at 16:45; Stop 11/13/16 at 16:46; Status DC Sodium Chloride (NS Flush) 2 ml BID IV FLUSH ; Start 11/13/16 at 21:00 Family History Father with CABG at age 89, still living at age 92 No other significant family history of diabetes, heart disease or cancers. Social History Denies ever using tobacco or illicit drugs. Used to drink approximately 12 beers monthly on a social occasion, but none recent due to living at an [facility] Patient is Patient has a daughter who lives in the area named Vaishnavi [facility] at [facility] Physical Exam Vital Signs Vital Signs Date Time Temp Pulse Resp B/P Pulse Ox O2 Delivery O2 Flow Rate FiO2 11/13/16 09:57 104 28 143/63 96 Nasal Cannula 3 11/13/16 07:13 104 19 121/58 99 Nasal Cannula 3 11/13/16 05:54 107 11/13/16 05:54 95 11/13/16 05:54 95 Nasal Cannula 2 11/13/16 05:51 97.8 111 18 94 Physical Exam GENERAL: This is a well-nourished, well-developed patient, in no apparent distress. SKIN: No rashes, ecchymoses or lesions. Cool and dry. HEAD: Atraumatic. Normocephalic. No temporal or scalp tenderness. EYES: Pupils equal round and reactive. Extraocular motions intact. No scleral icterus. No injection or drainage. ENT: Nose without bleeding, purulent drainage or septal hematoma. Throat without erythema, tonsillar hypertrophy or exudate. Uvula midline. Airway patent. NECK: Trachea midline. No JVD or lymphadenopathy. Supple, nontender, no meningeal signs. CARDIOVASCULAR: Regular rate and rhythm without murmurs, gallops, or rubs. RESPIRATORY: Faint bibasilar Rales. GASTROINTESTINAL: Abdomen soft, non-tender, nondistended. No hepato-splenomegaly , or palpable masses. No guarding. MUSCULOSKELETAL: Right lower extremity in cast. Intact sensation to right foot. Right pedal pulse 2+. No other joint abnormalities. Left pedal pulse 2+ NEUROLOGICAL: Awake, alert oriented 3. No focal deficit. Laboratory Laboratory Tests Test 11/13/16 06:00 White Blood Count 15.9 Red Blood Count 3.81 Hemoglobin 10.5 Hematocrit 32.4 Mean Corpuscular Volume 85.1 Mean Corpuscular Hemoglobin 27.6 Mean Corpuscular Hemoglobin 32.4 Concent Red Cell Distribution Width 14.2 Platelet Count 249 Mean Platelet Volume 8.9 Neutrophils (%) (Auto) 77.1 Lymphocytes (%) (Auto) 10.9 Monocytes (%) (Auto) 11.2 Eosinophils (%) (Auto) 0.1 Basophils (%) (Auto) 0.7 Neutrophils # (Auto) 12.3 Lymphocytes # (Auto) 1.7 Monocytes # (Auto) 1.8 Eosinophils # (Auto) 0.0 Basophils # (Auto) 0.1 CBC Comment DIFF FINAL Differential Comment Prothrombin Time 10.9 Prothromb Time International 1.0 Ratio Activated Partial 23.8 Thromboplast Time Sodium Level 139 Potassium Level 4.2 Chloride Level 106 Carbon Dioxide Level 23.7 Anion Gap 9 Blood Urea Nitrogen 12 Creatinine 0.88 Estimat Glomerular Filtration 64 Rate Random Glucose 134 Calcium Level 9.2 Magnesium Level 2.1 Total Creatine Kinase 19 Troponin I LESS THAN 0.02 Lipase 100 Result Diagram: 11/13/16 0600 11/13/16 0600 Imaging Last Impressions Chest X-Ray 11/13/16 0548 Signed Impressions: Service Date/Time: October 06:02 - CONCLUSION: Normal examination except for mild bibasilar atelectasis right greater than left. Baljit Hernandez MD CT Angiography 11/13/16 0000 Signed Impressions: Service Date/Time: October 07:31 - CONCLUSION: 1. Pulmonary emboli. This is greatest in the right lower lobe pulmonary arteries. There is apparent milder emboli in left lower lobe pulmonary arteries. 2. Consolidation in both posterior lung bases with small right effusion. 3. Cardiomegaly. 4. Hiatal hernia. Jonathon Esqueda MD Assessment and Plan Problem List: (1) Chest pain, atypical (2) Pulmonary embolism (3) HLD (hyperlipidemia) (4) Schizophrenia (5) Depression (6) Hyperlipidemia (7) hx right ankle orif (8) History of fracture of right ankle (9) bilateral consolidations Assessment and Plan Admit to Dr. Mora 66-year-old female admitted with chest pain, palpitations. CTA of the chest significant for pulmonary emboli. Patient was recently admitted after fall, was found with displaced right ankle trimalleolar fracture with syndesmosis disruption, status post-Open reduction internal fixation right ankle fractures with syndesmotic fixation 10/24. Pulmonary emboli, had recent surgery, has not been moving as much. -Continue with Lovenox 70 mg subcutaneous twice a day, we'll transition to Xarelto 50 mg by mouth twice a day for 21 days and then continue with 20 mg by mouth daily. -Hypercoagulable panel has been ordered -Continue with oxygen at 2 L to keep sats greater than 92. -We'll check ultrasound right leg to rule out DVT CTA findings of bibasilar consolidations Blood cultures have been ordered Will be started on empiric antibiotics S/P fall with displaced right ankle trimalleolar fracture with syndesmosis disruption, status post-Open reduction internal fixation right ankle fractures with syndesmotic fixation 5. Continue pain management Physical therapy Bowel regimen has been ordered Constipation, states no BM for 5 days Milk of magnesia when necessary Depression, schizophrenia, stable Continue home medications Hyperlipidemia Continue home medications Home medications reviewed, initiated as indicated Plan of care has been discussed with the patient, attending and registered nurse. Further management of the patient will be dependent on the hospital course This patient was seen by myself and Dr. Mora, this H&P is written on her behalf Physician Certification 2 Midnight Certification Type: Admission for Inpatient Services Order for Inpatient Services The services are ordered in accordance with Medicare regulations or non- Medicare payer requirements, as applicable. In the case of services not specified as inpatient-only, they are appropriately provided as inpatient services in accordance with the 2-midnight benchmark. Estimated LOS (days): 2 2 days is the estimated time the patient will need to remain in the hospital, assuming treatment plan goals are met and no additional complications. Post-Hospital Plan: SNF Problem Qualifiers (1) Pulmonary embolism: Qualified Code: I26.99 - Other acute pulmonary embolism without acute cor pulmonale (2) HLD (hyperlipidemia): Qualified Code: E78.5 - Hyperlipidemia, unspecified hyperlipidemia type (3) Schizophrenia: Qualified Code: F20.9 - Schizophrenia, unspecified type (4) Depression: Qualified Code: F32.9 - Depression, unspecified depression type (5) Hyperlipidemia: Qualified Code: E78.5 - Hyperlipidemia, unspecified hyperlipidemia type Mary Bonds November 13, 2016 10:31
[2016-11-13] MEDS ORDERED: MORPHINE SULFATE 4 MG/ML INJ IV PUSH PRN (12:45)
--- NOTE | 2016-11-13 12:50 | HHI.PR ---
Objective Objective Results - Vital Signs Date Time Temp Pulse Resp B/P Pulse Ox O2 Delivery O2 Flow Rate FiO2 11/13/16 11:00 104 26 114/60 97 Nasal Cannula 3 11/13/16 09:57 104 28 143/63 96 Nasal Cannula 3 11/13/16 07:13 104 19 121/58 99 Nasal Cannula 3 11/13/16 05:54 107 11/13/16 05:54 95 11/13/16 05:54 95 Nasal Cannula 2 11/13/16 05:51 97.8 111 18 94 I/O 11/12/16 11/12/16 11/12/16 11/13/16 11/13/16 11/13/16 07:00 15:00 23:00 07:00 15:00 23:00 Intake Total 1000 ml Balance 1000 ml Intake IV Total 1000 ml # Voids 1 Result Diagram: 11/13/16 0600 11/13/16 0600 Other Results Laboratory Tests Test 11/13/16 06:00 White Blood Count 15.9 Red Blood Count 3.81 Hemoglobin 10.5 Hematocrit 32.4 Mean Corpuscular Volume 85.1 Mean Corpuscular Hemoglobin 27.6 Mean Corpuscular Hemoglobin 32.4 Concent Red Cell Distribution Width 14.2 Platelet Count 249 Mean Platelet Volume 8.9 Neutrophils (%) (Auto) 77.1 Lymphocytes (%) (Auto) 10.9 Monocytes (%) (Auto) 11.2 Eosinophils (%) (Auto) 0.1 Basophils (%) (Auto) 0.7 Neutrophils # (Auto) 12.3 Lymphocytes # (Auto) 1.7 Monocytes # (Auto) 1.8 Eosinophils # (Auto) 0.0 Basophils # (Auto) 0.1 CBC Comment DIFF FINAL Differential Comment Prothrombin Time 10.9 Prothromb Time International 1.0 Ratio Activated Partial 23.8 Thromboplast Time Sodium Level 139 Potassium Level 4.2 Chloride Level 106 Carbon Dioxide Level 23.7 Anion Gap 9 Blood Urea Nitrogen 12 Creatinine 0.88 Estimat Glomerular Filtration 64 Rate Random Glucose 134 Calcium Level 9.2 Magnesium Level 2.1 Total Creatine Kinase 19 Troponin I LESS THAN 0.02 Lipase 100 Physical Exam Physical Exam PHYSICAL EXAMINATION GENERAL: This is a well-developed, well-nourished female who appears to be in no acute distress. She is alert and awake, []. HEAD: Normocephalic without any lesion or mass noted. Facial features appear symmetric. EYES: Perrla, Normal eye movement, [] Icterus. [] Conj congestion. OROPHARYNGEAL: Oropharynx without erythema or edema. MOUTH/THROAT: Tongue midline []. Buccal mucosa is moist []. NECK: Supple. No nuchal rigidity or lymphadenopathy. Trachea midline without deviation. Thyroid not palpable, no bruits appreciated. CARDIAC: Regular rhythm, regular rate, S1 and S2 are heard. Murmur []; no gallops or rubs. LUNGS: Clear to auscultation bilaterally. [] wheeze, [] rhonchi or [] rale. No use of accessory muscles on inspiration or expiration. ABDOMEN: Soft, nontender, no organomegaly or masses. Bowel sounds are heard in all four quadrants. No rebound. No guarding. EXTREMITIES: [] edema. Pulses equal bilateral. [] cyanosis. NEUROLOGICAL: Patient mood and affect appropriate. Cranial nerves II through XII grossly intact. Muscle strength 5/5 in the upper and lower extremities bilaterally. Deep tendon reflexes are 2+ in the upper and lower extremities bilaterally. SKIN:Warm and moist PSYCH: Mood and affect appropriate A/P Assessment and Plan patient seen and examined please refer to admission H & P for details chest pain , sob likely sec to b/l PEs, inpatient with recent h/o ankle injury fever 101 continue lovenox u/s b/l lower ext to r/o DVT hyper coag labs morphine for pain control tele tylenol for fever start rocephin azithromycin send UA and blood cultures resume home meds plan of care discussed with patient, nursing staff , Mary AUSTIN no family at bed side Jess Mora MD November 13, 2016 12:50
[2016-11-13] MEDS: cefTRIAXone INJ 1,000 MG in SODIUM CHLORIDE 0.9% INJ 100 ML IV SCH (13:15)
[2016-11-13] MEDS: ACETAMINOPHEN 325 MG TAB PO PRN ×2 (13:15→21:52)
[2016-11-13 13:41] LABS: BLOOD, URINE NEG (NEG); COMMENT (UR) CULT NOT INDICATED; CULTURE IF INDICATED CULT NOT INDICATED; GLUCOSE,URINE NEG (NEG); KETONE, URINE NEG (NEG); MUCUS URINE FEW /lpf (OCC); NITRITE,URINE NEG (NEG); PH, URINE 6.5 (5.0-8.5); SQUAMOUS EPITHELIAL CELL URINE <1 /hpf (0-5); URINE COLOR LIGHT-YELLOW (YELLW/STRAW)
[2016-11-13] MEDS: AZITHROMYCIN INJ 500 MG in SODIUM CHLOR 0.9% 250 ML INJ 250 ML IV SCH (15:17)
[2016-11-13] MEDS ORDERED: SODIUM CHLORID 0.9% 500 ML INJ 500 ML IV ONE (16:45)
--- NOTE | 2016-11-13 16:59 | EKG ---
Date Performed: 11/13/2016 Time Performed: 05:53:29 PTAGE: 66 years EKG: SINUS TACHYCARDIA POSSIBLE LEFT ATRIAL ENLARGEMENT NON-SPECIFIC ST/T WAVE CHANGES ABNORMAL ECG PREVIOUS TRACING : 05/12/2016 09.22 Compared to prior tracing no significant change DOCTOR: Tahir Rivera Interpretating Date/Time 11/13/2016 16:58:13
[2016-11-13] MEDS: SODIUM CHLORIDE 0.9% FLUSH 10 ML FLUSH IV FLUSH SCH (19:40)
[2016-11-13] MEDS ORDERED: ENOXAPARIN SODIUM 80 MG/0.8 ML SYRINGE SQ SCH (21:00)
[2016-11-13] MEDS: OLANZapine 10 MG TAB PO SCH (21:50)
--- NOTE | 2016-11-13 22:12 | RADRPT ---
EXAM DATE/TIME: 11/13/2016 18:56 [facility] COMPARISON: No previous studies available for comparison. INDICATIONS : Bilateral leg swelling. MEDICAL HISTORY : Cardiovascular disease. SURGICAL HISTORY : section. ENCOUNTER: Initial ACUITY: 1 day PAIN SCORE: 4/10 LOCATION: Bilateral leg. TECHNIQUE: Venous ultrasound of the left and right leg was performed from the inguinal ligament to the proximal calf. Real-time, color Doppler and spectral tracing, compression and augmentation techniques were us ed. FINDINGS: RIGHT LEG: Occlusive thrombus seen distally in the right superficial femoral vein. Below the knee, there is nono cclusive thrombus in the right popliteal, peroneal and proximal posterior tibial vein. There is nonvi sualization of the distal calf related to cast. LEFT LEG: Nonocclusive thrombus seen in the left iliac, common femoral and proximal superficial femoral vein. CONCLUSION: Bilateral lower extremity DVT as above. Bernardo Edouard MD on November 13, 2016 at 22:08 Board Certified Radiologist. This report was verified electronically.
[2016-11-14] VITALS (7 sets, daily range): BP systolic 98–119; BP diastolic 50–72; PULSE 16–112; RESP 16–22; TEMP 97.8–101.6; O2SAT 93–96
[2016-11-14] MEDS: ACETAMINOPHEN 325 MG TAB PO PRN ×2 (05:14→17:18)
[2016-11-14] MEDS: FLUoxetine HCL 20 MG CAP PO SCH (09:32)
[2016-11-14] MEDS: RIVAROXABAN 15 MG TAB PO SCH ×2 (09:32→20:51)
[2016-11-14] MEDS: CHOLECALCIFEROL (VIT D3) 1000 UNIT TAB PO SCH (09:32)
[2016-11-14] MEDS: busPIRone HCL 10 MG TAB PO SCH ×2 (09:32→20:51)
[2016-11-14] MEDS: CALCIUM/VITAMIN D 250 MG/125 U TAB PO SCH ×2 (09:32→20:51)
[2016-11-14] MEDS: SODIUM CHLORIDE 0.9% FLUSH 10 ML FLUSH IV FLUSH SCH ×2 (09:33→20:52)
[2016-11-14] MEDS: ATORVASTATIN 20 MG TAB PO SCH (09:33)
[2016-11-14] MEDS: QUEtiapine FUMARATE 25 MG TAB PO SCH (09:33)
[2016-11-14 09:54] LABS: AUTOMATED NEUTROPHIL # 8.9 TH/MM3 (1.8-7.7); BASOPHIL % 0.3 % (0.0-2.0); EOSINOPHIL # 0.1 TH/MM3 (0-0.4); EOSINOPHIL % 0.7 % (0.0-4.0); HEMATOCRIT 26.9 % (35.0-46.0); HEMO FLAGS DIFF FINAL; LYMPH % 12.7 % (9.0-44.0); LYMPHOCYTE # 1.5 TH/MM3 (1.0-4.8); MEAN CELL VOLUME 84.8 FL (80.0-100.0); MEAN CORPUSCULAR HEMOGLOBIN 27.6 PG (27.0-34.0); MEAN CORPUSCULAR HGB CONC 32.6 % (32.0-36.0); MONO % 9.5 % (0.0-8.0); NEUT % 76.8 % (16.0-70.0); PLATELET COUNT 212 TH/MM3 (150-450); RED BLOOD COUNT 3.18 MIL/MM3 (4.00-5.30); RED CELL DISTRIBUTION WIDTH 14.1 % (11.6-17.2); WHITE BLOOD COUNT 11.6 TH/MM3 (4.0-11.0)
[2016-11-14 10:31] LABS: BICARBONATE 23.1 MEQ/L (21.0-32.0); POTASSIUM 3.9 MEQ/L (3.5-5.1)
[2016-11-14] MEDS: SODIUM CHLOR 0.9% 1000 ML INJ 1,000 ML IV SCH (12:35)
[2016-11-14] MEDS: cefTRIAXone INJ 1,000 MG in SODIUM CHLORIDE 0.9% INJ 100 ML IV SCH (13:37)
[2016-11-14] MEDS: AZITHROMYCIN INJ 500 MG in SODIUM CHLOR 0.9% 250 ML INJ 250 ML IV SCH (13:42)
--- NOTE | 2016-11-14 14:28 | HHI.PR ---
Subjective Remarks Resting in bed Just finished eating lunch Appetite fair Afebrile Mild SOB noted at rest (Ila Reddy) Objective Objective Results - Vital Signs Date Time Temp Pulse Resp B/P Pulse Ox O2 Delivery O2 Flow Rate FiO2 11/14/16 12:00 98.6 98 22 101/59 96 11/14/16 08:00 98.9 87 18 98/54 93 11/14/16 04:00 98.7 16 16 108/72 96 11/14/16 02:26 83 11/14/16 00:00 97.8 94 17 106/50 95 11/13/16 20:02 98.3 74 17 134/64 97 11/13/16 16:22 98.5 98 16 86/54 95 I/O 11/13/16 11/13/16 11/13/16 11/14/16 11/14/16 11/14/16 07:00 15:00 23:00 07:00 15:00 23:00 Intake Total 1240 ml 360 ml 1362 ml Output Total 400 ml 1200 ml Balance 840 ml -840 ml 1362 ml Intake Oral 240 ml 360 ml IV Total 1000 ml 1362 ml Output Urine Total 400 ml 1200 ml # Voids 1 3 # Bowel Movements 0 (Ila Reddy) Result Diagram: 11/14/16 0854 11/14/16 0854 ROS General: Fatigue, Weakness, Other (10 point ROS done positives noted) Pulmonary: Cough (wet sound but not coughing up any sputum), SOB GI: BM (constipation probably close to a week) Neuro/MS: Other (history of schizophrenia stable affect for now) (Ila Reddy) Physical Exam Physical Exam PHYSICAL EXAMINATION GENERAL: This is a well-developed, elderly female who appears to be in mild distress. She is alert and awake, HEAD: Normocephalic without any lesion or mass noted. Facial features appear symmetric. OROPHARYNGEAL: Oropharynx without erythema or edema. NECK: Supple. Trachea midline without deviation. CARDIAC: Regular rhythm, regular rate, S1 and S2 are heard. Murmur grade 3 to 4/6 systolic at the left sternal border LUNGS: Low volumes, diminished to auscultation bilaterally. ABDOMEN: Soft, nontender, no organomegaly or masses. Bowel sounds are heard EXTREMITIES: Mild right leg edema. Hard Cast on lower extremity right side NEUROLOGICAL: Patient mood and affect flat but appropriate SKIN:Warm and moist (Ila Reddy) A/P Assessment and Plan (1) Chest pain, atypical (2) Pulmonary embolism (3) HLD (hyperlipidemia) (4) Schizophrenia (5) Depression (6) Hyperlipidemia (7) hx right ankle orif (8) History of fracture of right ankle (9) bilateral consolidations 66-year-old female admitted with chest pain, palpitations. CTA of the chest significant for pulmonary emboli. Patient was recently admitted after fall, was found with displaced right ankle trimalleolar fracture with syndesmosis disruption, status post-Open reduction internal fixation right ankle fractures with syndesmotic fixation 10/24. Pulmonary emboli, had recent surgery, has not been moving as much. Lovenox 70 mg subcutaneous and transition to Xarelto 50 mg by mouth twice a day for 21 days and then continue with 20 mg by mouth daily. -Continue with oxygen at 2 L to keep sats greater than 92. Patient still noted to have some low volumes and mild shortness of breath at rest. Encouraged to continue to cough and deep breathe, and use incentive spirometry CTA findings of bibasilar consolidations Blood cultures, negative so far S/P fall with displaced right ankle trimalleolar fracture with syndesmosis disruption, status post-Open reduction internal fixation right ankle fractures with syndesmotic fixation 10/24. Continue pain management Physical therapy, and encourage patient to be up in chair. She states she's walking to the bathroom slowly but safely Constipation, patient states she hasn't been to the bathroom since last week, but doesn't know exactly when. We'll check patient for impaction and give bottle of mag citrate. No results patient can have fleets enema Depression, schizophrenia, stable Adequate management Labs reviewed, patient shows anemia with mild drop over the last 24-48 hours, monitor probably secondary to chronic disease and patient is now hydrated Acute kidney injury resolving with IV fluids, decreased to 45/hr. Will dc am. Vital signs reviewed trends are normal for now (Ila Reddy) Assessment and Plan patient seen and examined continue Xarelto 15 mg po bid fpr 3 weeks then 20 mg po daily no chest pain continue antibiotics leucocytosis improving, monitor hyper coag panel pending u/c doppler b/l lower ext DVT continue current care plan of care discussed with patient and Ila AUSTIN labs in (Jess Mora MD) Ila Reddy November 14, 2016 14:28 Jess Mora MD November 14, 2016 15:03
[2016-11-14] MEDS ORDERED: SOD PHOSPHATE/SOD BIPHOSPHATE (ADULT) ENEMA 133ML RECTAL PRN (14:30)
[2016-11-14] MEDS ORDERED: MAGNESIUM CITRATE SOLN 300 ML BTL PO ONE (15:00)
[2016-11-14] MEDS ORDERED: RESP: ALBUTEROL 2.5 MG/IPRATROPIUM 0.5 MG NEB (PRN) NEB (19:15)
[2016-11-14] MEDS: OLANZapine 10 MG TAB PO SCH (20:51)
[2016-11-15] VITALS (9 sets, daily range): BP systolic 107–142; BP diastolic 55–74; PULSE 92–104; RESP 17–20; TEMP 96.5–100; O2SAT 93–97
[2016-11-15] MEDS: SODIUM CHLOR 0.9% 1000 ML INJ 1,000 ML IV SCH (04:05)
[2016-11-15] MEDS: QUEtiapine FUMARATE 25 MG TAB PO SCH (09:00)
[2016-11-15] MEDS: SODIUM CHLORIDE 0.9% FLUSH 10 ML FLUSH IV FLUSH SCH ×2 (09:00→23:01)
[2016-11-15] MEDS: FLUoxetine HCL 20 MG CAP PO SCH (09:01)
[2016-11-15] MEDS: CALCIUM/VITAMIN D 250 MG/125 U TAB PO SCH ×2 (09:01→23:01)
[2016-11-15] MEDS: ATORVASTATIN 20 MG TAB PO SCH (09:01)
[2016-11-15] MEDS: CHOLECALCIFEROL (VIT D3) 1000 UNIT TAB PO SCH (09:01)
[2016-11-15] MEDS: busPIRone HCL 10 MG TAB PO SCH ×2 (09:01→23:01)
[2016-11-15] MEDS: RIVAROXABAN 15 MG TAB PO SCH ×2 (09:02→23:00)
[2016-11-15] MEDS: ACETAMINOPHEN 325 MG TAB PO PRN (12:12)
[2016-11-15] MEDS: AZITHROMYCIN INJ 500 MG in SODIUM CHLOR 0.9% 250 ML INJ 250 ML IV SCH (13:14)
--- NOTE | 2016-11-15 14:32 | HHI.PR ---
Subjective Remarks Resting in bed More alert today, smiling Appetite improving Low-grade fever Mild SOB noted at rest (Ila Reddy) Objective Objective Results - Vital Signs Date Time Temp Pulse Resp B/P Pulse Ox O2 Delivery O2 Flow Rate FiO2 11/15/16 12:00 99.7 98 20 129/61 95 11/15/16 10:24 95 Nasal Cannula 3.00 11/15/16 08:00 100.0 92 18 110/55 95 11/15/16 04:00 96.5 102 19 124/68 93 11/15/16 00:00 97.0 95 18 107/56 93 11/14/16 20:53 18 11/14/16 20:00 98.6 96 19 117/64 94 11/14/16 16:00 101.6 112 22 119/67 96 I/O 11/14/16 11/14/16 11/14/16 11/15/16 11/15/16 11/15/16 07:00 15:00 23:00 07:00 15:00 23:00 Intake Total 360 ml 1362 ml 960 ml 700 ml Output Total 1200 ml 1200 ml 450 ml Balance -840 ml 1362 ml -240 ml 250 ml Intake Oral 360 ml 960 ml 240 ml IV Total 1362 ml 460 ml Output Urine Total 1200 ml 1200 ml 450 ml # Voids 1 # Bowel Movements 1 2 (Ila Reddy) Result Diagram: 11/14/16 0854 11/14/16 0854 ROS General: Other (10 point ROS done positives noted of systems negative or unremarkable) Pulmonary: Cough, SOB (mild) GI: BM (constipation resolving with bowel regimen), Diarrhea (loose stools today but has had laxative) Neuro/MS: Other (gets up to bedside commode with assistance) (Ila Reddy) Physical Exam Physical Exam PHYSICAL EXAMINATION GENERAL: This is an elderly female who appears to be in no acute distress. She is alert and awake, good mood and affect today HEAD: Normocephalic without any lesion or mass noted. Facial features appear symmetric. OROPHARYNGEAL: Oropharynx without erythema or edema., Moist NECK: Supple. Trachea midline without deviation. CARDIAC: Regular rhythm, regular rate, 90s LUNGS: Diminished but improving to auscultation bilaterally. Decreased breath sounds on the right greater than the left. ABDOMEN: Soft, nontender, no organomegaly or masses. Bowel sound active EXTREMITIES: Mild lower extremity edema. Pulses NEUROLOGICAL: Patient mood and affect appropriate. Smiling feeling better today SKIN:Warm and moist Objective Remarks Yes my bowels are finally moving (Ila Reddy) A/P Assessment and Plan (1) Chest pain, atypical (2) Pulmonary embolism (3) HLD (hyperlipidemia) (4) Schizophrenia (5) Depression (6) Hyperlipidemia (7) hx right ankle orif (8) History of fracture of right ankle (9) bilateral consolidations 66-year-old female admitted with chest pain, palpitations. CTA of the chest significant for pulmonary emboli. Patient was recently admitted after fall, was found with displaced right ankle trimalleolar fracture with syndesmosis disruption, status post-Open reduction internal fixation right ankle fractures with syndesmotic fixation 5. Pulmonary emboli, had recent surgery, has not been moving as much. Lovenox 70 mg subcutaneous and transition to Xarelto 50 mg by mouth twice a day for 21 days and then continue with 20 mg by mouth daily. Vital signs reviewed , Mild low-grade fever but heart rate controlled in the 90s -Continue with oxygen at 2 L to keep sats greater than 92., Currently maintaining sats without any issues Patient still noted to have some low volumes, but appears to be less dyspneic at rest. Increased activity , patient is getting up and going to bedside commode in sitting up in chair briefly CTA findings of bibasilar consolidations Blood cultures, continue to be negative, but today patient has low-grade fever S/P fall with displaced right ankle trimalleolar fracture with syndesmosis disruption, status post-Open reduction internal fixation right ankle fractures with syndesmotic fixation 10/24. Continue pain management Physical therapy, and encourage patient to be up in chair. Constipation, patient states she hasn't been to the bathroom in one week, patient had good results from mag citrate that was given yesterday. BMs 2 Depression, schizophrenia, stable Adequate management Labs reviewed, patient shows anemia, probable secondary to chronic disease, continue to monitor her labs hemoglobin 8.8 Leukocytosis is improving Acute kidney injury improving. Encouraged patient to take by mouth fluids well and will DC fluids in the morning (Ila Reddy) Assessment and Plan patient seen and examined breathing much better no chest pain continue antibiotics fever better PT eval continue current care plan of care discussed with patient, nursing staff and Ila [place] (Jess Mora MD) Ila Reddy November 15, 2016 14:32 Jess Mora MD November 15, 2016 15:12
[2016-11-15] MEDS: cefTRIAXone INJ 1,000 MG in SODIUM CHLORIDE 0.9% INJ 100 ML IV SCH (14:59)
[2016-11-15] MEDS: OLANZapine 10 MG TAB PO SCH (23:01)
[2016-11-16] VITALS (8 sets, daily range): BP systolic 107–129; BP diastolic 53–77; PULSE 94–104; RESP 18–22; TEMP 96.5–100; O2SAT 91–97
[2016-11-16] MEDS: SODIUM CHLOR 0.9% 1000 ML INJ 1,000 ML IV SCH (05:35)
[2016-11-16 06:04] LABS: AUTOMATED NEUTROPHIL # 6.2 TH/MM3 (1.8-7.7); BASOPHIL # 0.1 TH/MM3 (0-0.2); EOSINOPHIL # 0.2 TH/MM3 (0-0.4); EOSINOPHIL % 2.3 % (0.0-4.0); HEMATOCRIT 24.9 % (35.0-46.0); HEMO FLAGS DIFF FINAL; LYMPH % 19.2 % (9.0-44.0); LYMPHOCYTE # 1.7 TH/MM3 (1.0-4.8); MEAN CELL VOLUME 84.1 FL (80.0-100.0); MEAN CORPUSCULAR HEMOGLOBIN 28.2 PG (27.0-34.0); MEAN CORPUSCULAR HGB CONC 33.6 % (32.0-36.0); MONO % 9.4 % (0.0-8.0); NEUT % 68.1 % (16.0-70.0); PLATELET COUNT 271 TH/MM3 (150-450); RED BLOOD COUNT 2.95 MIL/MM3 (4.00-5.30); WHITE BLOOD COUNT 9.1 TH/MM3 (4.0-11.0)
[2016-11-16 07:04] LABS: BICARBONATE 23.5 MEQ/L (21.0-32.0); POTASSIUM 3.5 MEQ/L (3.5-5.1)
[2016-11-16] MEDS: busPIRone HCL 10 MG TAB PO SCH ×2 (08:07→20:25)
[2016-11-16] MEDS: ATORVASTATIN 20 MG TAB PO SCH (08:07)
[2016-11-16] MEDS: FLUoxetine HCL 20 MG CAP PO SCH (08:07)
[2016-11-16] MEDS: CHOLECALCIFEROL (VIT D3) 1000 UNIT TAB PO SCH (08:07)
[2016-11-16] MEDS: CALCIUM/VITAMIN D 250 MG/125 U TAB PO SCH ×2 (08:07→20:25)
[2016-11-16] MEDS: QUEtiapine FUMARATE 25 MG TAB PO SCH (08:08)
[2016-11-16] MEDS: SODIUM CHLORIDE 0.9% FLUSH 10 ML FLUSH IV FLUSH SCH ×2 (08:10→20:26)
[2016-11-16] MEDS: RIVAROXABAN 15 MG TAB PO SCH ×2 (09:16→20:25)
--- NOTE | 2016-11-16 10:03 | HHI.PR ---
Subjective Remarks ambulating with assistance in room has a cough, non productive no cp no sob eating okay febrile max 100 tachycardia improving, SR/ST on monitor had an episode of vomiting after meds, better now Objective Objective Results - Vital Signs Date Time Temp Pulse Resp B/P Pulse Ox O2 Delivery O2 Flow Rate FiO2 11/16/16 08:05 96 Nasal Cannula 3.00 11/16/16 08:00 99.2 94 22 113/67 91 11/16/16 04:00 100.0 102 19 123/63 96 11/16/16 00:00 99.4 97 18 107/53 95 11/15/16 20:33 94 11/15/16 20:00 98.9 104 17 121/65 97 11/15/16 18:00 95 Nasal Cannula 3.00 11/15/16 16:00 99.0 101 18 142/74 95 11/15/16 12:00 99.7 98 20 129/61 95 11/15/16 10:24 95 Nasal Cannula 3.00 I/O 11/15/16 11/15/16 11/15/16 11/16/16 11/16/16 11/16/16 07:00 15:00 23:00 07:00 15:00 23:00 Intake Total 700 ml 720 ml 480 ml 240 ml Output Total 450 ml 1500 ml 300 ml 450 ml 30 ml Balance 250 ml -780 ml 180 ml -210 ml -30 ml Intake Oral 240 ml 720 ml 480 ml 240 ml IV Total 460 ml Output Urine Total 450 ml 1500 ml 300 ml 450 ml Emesis 30 ml # Voids 1 3 # Bowel Movements 2 2 Result Diagram: 11/16/16 0531 11/16/16 0531 Imaging Last Impressions Chest X-Ray 11/13/16 0548 Signed Impressions: Service Date/Time: October 06:02 - CONCLUSION: Normal examination except for mild bibasilar atelectasis right greater than left. Baljit Hernandez MD CT Angiography 11/13/16 0000 Signed Impressions: Service Date/Time: October 07:31 - CONCLUSION: 1. Pulmonary emboli. This is greatest in the right lower lobe pulmonary arteries. There is apparent milder emboli in left lower lobe pulmonary arteries. 2. Consolidation in both posterior lung bases with small right effusion. 3. Cardiomegaly. 4. Hiatal hernia. Jonathon Esqueda MD Other Results Laboratory Tests Test 11/16/16 05:31 White Blood Count 9.1 Red Blood Count 2.95 Hemoglobin 8.3 Hematocrit 24.9 Mean Corpuscular Volume 84.1 Mean Corpuscular Hemoglobin 28.2 Mean Corpuscular Hemoglobin 33.6 Concent Red Cell Distribution Width 14.0 Platelet Count 271 Mean Platelet Volume 8.5 Neutrophils (%) (Auto) 68.1 Lymphocytes (%) (Auto) 19.2 Monocytes (%) (Auto) 9.4 Eosinophils (%) (Auto) 2.3 Basophils (%) (Auto) 1.0 Neutrophils # (Auto) 6.2 Lymphocytes # (Auto) 1.7 Monocytes # (Auto) 0.9 Eosinophils # (Auto) 0.2 Basophils # (Auto) 0.1 CBC Comment DIFF FINAL Differential Comment Sodium Level 144 Potassium Level 3.5 Chloride Level 113 Carbon Dioxide Level 23.5 Anion Gap 8 Blood Urea Nitrogen 4 Creatinine 0.56 Estimat Glomerular Filtration 108 Rate Random Glucose 102 Calcium Level 8.1 Date/Time Procedure Status Source Growth 11/13/16 13:16 Aerobic Blood Culture - Preliminary Resulted Blood Peripheral NO GROWTH IN 2 DAYS 11/13/16 13:16 Anaerobic Blood Culture - Preliminary Resulted Blood Peripheral NO GROWTH IN 2 DAYS ROS General: Weakness HEENT: No: Sore Throat, Dysphagia Cardiac: No: Chest Pain, Edema, Palpitations Pulmonary: Cough GI: N/V (nausea ) /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 SKIN: No rashes, ecchymoses or lesions. Cool and dry. HEAD: Atraumatic. Normocephalic. No temporal or scalp tenderness. EYES: Pupils equal round and reactive. Extraocular motions intact. No scleral icterus. No injection or drainage. ENT: Nose without bleeding, purulent drainage or septal hematoma. Throat without erythema, tonsillar hypertrophy or exudate. Uvula midline. Airway patent. NECK: Trachea midline. No JVD or lymphadenopathy. Supple, nontender, no meningeal signs. CARDIOVASCULAR: Regular rate and rhythm without murmurs, gallops, or rubs. RESPIRATORY: Faint bibasilar Rales. GASTROINTESTINAL: Abdomen soft, non-tender, nondistended. No hepato-splenomegaly , or palpable masses. No guarding. MUSCULOSKELETAL: Right lower extremity in cast. Intact sensation to right foot. Right pedal pulse 2+. No other joint abnormalities. Left pedal pulse 2+ NEUROLOGICAL: Awake, alert oriented 3. No focal deficit. Laboratory Urinary Catheter: No Vascular Central Line Catheter: No A/P Diagnosis: (1) Chest pain, atypical (2) Pulmonary embolism (3) HLD (hyperlipidemia) (4) Schizophrenia (5) Depression (6) Hyperlipidemia (7) hx right ankle orif (8) History of fracture of right ankle (9) bilateral consolidations (10) DVT of lower extremity, bilateral Assessment and Plan 66-year-old female admitted with chest pain, palpitations. CTA of the chest significant for pulmonary emboli. Patient was recently admitted after fall, was found with displaced right ankle trimalleolar fracture with syndesmosis disruption, status post-Open reduction internal fixation right ankle fractures with syndesmotic fixation 5/5. Pulmonary emboli, had recent surgery, had not been moving as much. -US both legs + DVT bilat -Continue Xarelto -Hypercoagulable panel has been ordered, pending results -Continue with oxygen at 2 L to keep sats greater than 92. CTA findings of bibasilar consolidations remains febrile Blood cultures remain negative continue empiric antibiotics -IS ordered -if fever > 101, will repeat BC S/P fall with displaced right ankle trimalleolar fracture with syndesmosis disruption, status post-Open reduction internal fixation right ankle fractures with syndesmotic fixation 5/5. Continue pain management Physical therapy Bowel regimen has been ordered Anemia, ? etiology unclear, recent surgery. -stool for OB -iron studies Constipation, had mag citrate, now having BMs Milk of magnesia when necessary Depression, schizophrenia, stable Continue home medications Hyperlipidemia Continue home medications Overall improving, would like to see fever free x 24 hours before dc Labs in am D/W RN D/W Dr. Mora D/W pt. This patient was seen by myself and Dr. Mora, this note is written on her behalf Problem Qualifiers (1) Pulmonary embolism: Qualified Code: I26.99 - Other acute pulmonary embolism without acute cor pulmonale (2) HLD (hyperlipidemia): Qualified Code: E78.5 - Hyperlipidemia, unspecified hyperlipidemia type (3) Schizophrenia: Qualified Code: F20.9 - Schizophrenia, unspecified type (4) Depression: Qualified Code: F32.9 - Depression, unspecified depression type (5) Hyperlipidemia: Qualified Code: E78.5 - Hyperlipidemia, unspecified hyperlipidemia type (6) DVT of lower extremity, bilateral: [facility] November 16, 2016 10:03
[2016-11-16] MEDS ORDERED: POTASSIUM CHLORIDE 25 MEQ EFFERVESCENT TAB PO ONE (12:15)
[2016-11-16] MEDS: AZITHROMYCIN INJ 500 MG in SODIUM CHLOR 0.9% 250 ML INJ 250 ML IV SCH (13:29)
[2016-11-16] MEDS: cefTRIAXone INJ 1,000 MG in SODIUM CHLORIDE 0.9% INJ 100 ML IV SCH (13:30)
[2016-11-16] MEDS: OLANZapine 10 MG TAB PO SCH (20:25)
[2016-11-17] VITALS (7 sets, daily range): BP systolic 112–133; BP diastolic 59–76; PULSE 88–106; RESP 18–22; TEMP 96.3–98.7; O2SAT 92–97
[2016-11-17] MEDS ORDERED: XARE15TA PO (07:46)
[2016-11-17] MEDS ORDERED: XARE20TA PO (07:46)
--- NOTE | 2016-11-17 07:46 | HHI.DCPOC ---
Discharge Care Plan Diagnosis: (1) DVT of lower extremity, bilateral (2) Chest pain, atypical (3) Pulmonary embolism Your Health Problems Are: Chest Pain Cough Shortness of Breath Goals to Promote Your Health * To prevent worsening of your condition and complications * To maintain your health at the optimal level Directions to Meet Your Goals Take your medications as prescribed Follow your dietary instruction Follow activity as directed Keep your appointments as scheduled Take your immunizations and boosters as scheduled If your symptoms worsen call your PCP, if no PCP go to Urgent Care Center or Emergency Room Smoking is Dangerous to Your Health. Avoid second hand smoke Call the 24-hour hour crisis hotline for domestic abuse at [facility]. [facility] November 17, 2016 07:46
[2016-11-17] MEDS ORDERED: CEFU1TAB20 PO (07:49)
--- NOTE | 2016-11-17 07:52 | HHI.DS ---
Discharge Summary Admission Date November 13, 2016 at 08:44 Discharge Date: November 17, 2016 Admitting Diagnosis pe (1) Chest pain, atypical (2) Pulmonary embolism (3) HLD (hyperlipidemia) (4) Schizophrenia (5) Depression (6) Hyperlipidemia (7) hx right ankle orif (8) History of fracture of right ankle (9) bilateral consolidations (10) DVT of lower extremity, bilateral CBC/BMP: 11/16/16 0531 11/16/16 0531 Significant Findings Laboratory Tests Test 11/14/16 11/16/16 08:54 05:31 White Blood Count 11.6 TH/MM3 (4.0-11.0) Red Blood Count 3.18 MIL/MM3 2.95 MIL/MM3 (4.00-5.30) (4.00-5.30) Hemoglobin 8.8 GM/DL 8.3 GM/DL (11.6-15.3) (11.6-15.3) Hematocrit 26.9 % 24.9 % (35.0-46.0) (35.0-46.0) Neutrophils (%) (Auto) 76.8 % (16.0-70.0) Monocytes (%) (Auto) 9.5 % (0.0-8.0) 9.4 % (0.0-8.0) Neutrophils # (Auto) 8.9 TH/MM3 (1.8-7.7) Monocytes # (Auto) 1.1 TH/MM3 (0-0.9) Chloride Level 111 MEQ/L 113 MEQ/L (98-107) (98-107) Calcium Level 8.3 MG/DL 8.1 MG/DL (8.5-10.1) (8.5-10.1) Blood Urea Nitrogen 4 MG/DL (7-18) Imaging Last Impressions Chest X-Ray 11/13/16 0548 Signed Impressions: Service Date/Time: October 06:02 - CONCLUSION: Normal examination except for mild bibasilar atelectasis right greater than left. Baljit Hernandez MD Lower Extremity Ultrasound 11/13/16 0000 Signed Impressions: Service Date/Time: October 18:56 - CONCLUSION: Bilateral lower extremity DVT as above. Bernardo Edouard MD CT Angiography 11/13/16 0000 Signed Impressions: Service Date/Time: October 07:31 - CONCLUSION: 1. Pulmonary emboli. This is greatest in the right lower lobe pulmonary arteries. There is apparent milder emboli in left lower lobe pulmonary arteries. 2. Consolidation in both posterior lung bases with small right effusion. 3. Cardiomegaly. 4. Hiatal hernia. Jonathon Esqueda MD Hospital Course This is a 66-year-old female from a local assisted living facility, has significant past medical history of schizophrenia, depression, hyperlipidemia. Patient was recently admitted after she had a fall and had a right trimalleolar ankle fracture. She underwent a right ORIF on October 24, 2016. She had an uneventful postoperative course and was eventually discharged to rehabilitation facility. Patient presented to the emergency room today complaining of chest pressure, indicates its midsternum started day before around 10 PM. Indicated that the pain never goes away, it is persistent, rated it at 7. Denies any radiation, some palpitations. Does not increase with palpation. No diaphoresis. She's had some nausea and vomiting, approximately 3 times. No Hematemesis. No fever, no chills. Indicated physical therapy had been going fairly well. Patient was evaluated in emergency room, laboratory workup was completed. CBC remarkable for leukocytosis, WBC 15.9. BMP unremarkable. Troponin negative. Total creatinine kinase 19. Urine analysis was negative. CTA of the chest was significant for pulmonary emboli, greatest in the right lower lobe pulmonary arteries. There was milder emboli and left lower lobe pulmonary arteries. Consolidation in both posterior lung bases with small right effusion. Cardiomegaly. Hiatal hernia. Chest x-ray showed normal examination except for mild bibasal atelectasis, right greater than left. Patient was noted tachycardic, heart rate 100s. Blood pressure stable, 120s over 50s. Sats 99% on 3 L. 94 on room air. Patient was given a one-time dose of Lovenox weight-based. Patient denied any prior history of pulmonary emboli. No history of malignancy. Thinks that her father may have had history of PE. Patient was admitted for further evaluation and treatment. (1) Chest pain, atypical (2) Pulmonary embolism (3) HLD (hyperlipidemia) (4) Schizophrenia (5) Depression (6) Hyperlipidemia (7) hx right ankle orif (8) History of fracture of right ankle (9) bilateral consolidations (10) DVT of lower extremity, bilateral During the course of the hospitalization, the following took place: 66-year-old female admitted with chest pain, palpitations. CTA of the chest significant for pulmonary emboli. Patient was recently admitted after fall, was found with displaced right ankle trimalleolar fracture with syndesmosis disruption, status post-Open reduction internal fixation right ankle fractures with syndesmotic fixation 5/5. Pulmonary emboli, had recent surgery, had not been moving as much. -US both legs + DVT bilat -transitioned to Xarelto -Hypercoagulable panel was ordered, pending results -Continue with oxygen at 2 L to keep sats greater than 92. -stable, no more chest pain CTA findings of bibasilar consolidations. Spiked a fever. -obtained cultures and started on empiric antibiotics. Had a mild cough. Blood cultures remain negative continue empiric antibiotics -IS ordered -if fever > 101, will repeat BC -afebrile x 24 hours, stable, WBC okay S/P fall with displaced right ankle trimalleolar fracture with syndesmosis disruption, status post-Open reduction internal fixation right ankle fractures with syndesmotic fixation 5/5. Continued pain management Physical therapy ordered Bowel regimen has been ordered -ambulated with assistance, did well Anemia, ? etiology unclear, recent surgery. -stool for OB pending -iron studies done, low iron stores. PO iron started -HH stable, no active bleeding -can have f/u at SNF-CBC ordered for follow up Constipation, had mag citrate, had BM. Then no bm x 2 days. Milk of magnesia when necessary given Depression, schizophrenia, stable Continued home medications Hyperlipidemia Continued home medications Improved, afebrile ambulatory, chest pain free Discharged back to SNF Instructed to: f/u ortho, pcp repeat CBC at facility diet-heart healthy activity-per ortho Pt Condition on Discharge: Stable Discharge Disposition: Discharge to SNF Discharge Instructions DIET: Follow Instructions for: Heart Healthy Diet Activities you can perform: Weight Bearing as Claudy Other Activity Instructions: per ortho Follow up Referrals: Orthopedics PCP Follow-up New Medications: Cefuroxime (Cefuroxime) 500 Mg Tab 500 MG PO BID Infection #10 Ref 0 TAB Ferrous Sulfate (Feosol) 200 Mg Tab 200 MG PO BIDPC Nutritional Supplement #60 Ref 0 TAB Rivaroxaban (Xarelto) 20 Mg Tab 20 MG PO DAILY start on December 05, 2016 Blood Clot Prevention #30 Ref 0 TAB Rivaroxaban (Xarelto) 15 Mg Tab 15 MG PO BID 15 mg orally twice a day until December 04 then decrease to 20 mg orally daily for 6 months. blood clot #37 TAB Continued Medications: Atorvastatin (Atorvastatin) 20 Mg Tab 20 MG PO DAILY Cholesterol Management #30 Ref 0 TAB Buspirone (Buspirone) 10 Mg Tab 10 MG PO BID Anxiety Ref 0 TAB Calcium Carbonate-Vitamin D (Calcium 600+D 200) 600-200 Mg-Unit Tab 1 TAB PO BID Nutritional Supplement #60 Ref 2 TAB Cholecalciferol (Vitamin D3) 2,000 Unit Cap 2000 UNITS PO DAILY Nutritional Supplement #56 Ref 0 CAP Ergocalciferol (Ergocalciferol) 50,000 Unit Cap 64179 UNITS PO Q7D Nutritional Supplement #56 CAP Fluoxetine (Fluoxetine) 40 Mg Cap 40 CAP PO DAILY #30 Ref 0 CAP Olanzapine (Olanzapine) 10 Mg Tab 20 MG PO HS schizophrenia #30 TAB Quetiapine (Quetiapine) 25 Mg Tab 50 MG PO DAILY schizophrenia #30 TAB [facility] November 17, 2016 07:52
[2016-11-17 08:12] LABS: HEMATOCRIT 26.4 % (35.0-46.0); MEAN CELL VOLUME 84.7 FL (80.0-100.0); MEAN CORPUSCULAR HEMOGLOBIN 27.2 PG (27.0-34.0); MEAN CORPUSCULAR HGB CONC 32.1 % (32.0-36.0); PLATELET COUNT 298 TH/MM3 (150-450); RED BLOOD COUNT 3.12 MIL/MM3 (4.00-5.30); RED CELL DISTRIBUTION WIDTH 14.4 % (11.6-17.2); REVIEW FLAG FINAL; WHITE BLOOD COUNT 7.9 TH/MM3 (4.0-11.0)
[2016-11-17 08:15] LABS: RETIC % 1.4 % (0.4-3.0); REVIEW FLAG FINAL
[2016-11-17 08:51] LABS: FERRITIN 224 NG/ML (8-252); TRANSFERRIN IRON PROFILE 98 MG/DL (200-360)
[2016-11-17] MEDS: ATORVASTATIN 20 MG TAB PO SCH (09:14)
[2016-11-17] MEDS: CALCIUM/VITAMIN D 250 MG/125 U TAB PO SCH (09:14)
[2016-11-17] MEDS: QUEtiapine FUMARATE 25 MG TAB PO SCH (09:14)
[2016-11-17] MEDS: busPIRone HCL 10 MG TAB PO SCH (09:15)
[2016-11-17] MEDS: CHOLECALCIFEROL (VIT D3) 1000 UNIT TAB PO SCH (09:15)
[2016-11-17] MEDS: SODIUM CHLORIDE 0.9% FLUSH 10 ML FLUSH IV FLUSH SCH (09:15)
[2016-11-17] MEDS: FLUoxetine HCL 20 MG CAP PO SCH (09:15)
[2016-11-17] MEDS: RIVAROXABAN 15 MG TAB PO SCH (09:15)
[2016-11-17] MEDS ORDERED: FERR200T PO (11:48)
--- NOTE | 2016-11-17 11:51 | HHI.PR ---
Subjective Remarks doing well minimal cough no cp no sob eating okay no fever HR better no bm yet Objective Objective Results - Vital Signs Date Time Temp Pulse Resp B/P Pulse Ox O2 Delivery O2 Flow Rate FiO2 11/17/16 08:57 96.7 99 18 128/60 93 11/17/16 08:35 106 11/17/16 07:40 92 Nasal Cannula 3.00 11/17/16 04:00 98.7 97 20 124/66 94 11/17/16 00:00 98.6 99 20 112/59 95 11/16/16 20:08 97 Nasal Cannula 3.00 11/16/16 20:00 99.0 104 19 125/65 95 11/16/16 15:30 99.5 97 20 122/60 97 11/16/16 11:50 96.5 98 20 129/77 94 I/O 11/16/16 11/16/16 11/16/16 11/17/16 11/17/16 11/17/16 07:00 15:00 23:00 07:00 15:00 23:00 Intake Total 240 ml 600 ml 480 ml 240 ml Output Total 450 ml 1205 ml 450 ml 300 ml 1450 ml Balance -210 ml -605 ml 30 ml -60 ml -1450 ml Intake Oral 240 ml 600 ml 480 ml 240 ml Output Urine Total 450 ml 1175 ml 450 ml 300 ml 1450 ml Emesis 30 ml # Bowel Movements 0 Result Diagram: 11/17/16 0712 11/16/16 0531 Imaging Last Impressions Chest X-Ray 11/13/16 0548 Signed Impressions: Service Date/Time: October 06:02 - CONCLUSION: Normal examination except for mild bibasilar atelectasis right greater than left. Baljit Hernandez MD CT Angiography 11/13/16 0000 Signed Impressions: Service Date/Time: October 07:31 - CONCLUSION: 1. Pulmonary emboli. This is greatest in the right lower lobe pulmonary arteries. There is apparent milder emboli in left lower lobe pulmonary arteries. 2. Consolidation in both posterior lung bases with small right effusion. 3. Cardiomegaly. 4. Hiatal hernia. Jonathon Esqueda MD Other Results Laboratory Tests Test 11/17/16 07:12 White Blood Count 7.9 Red Blood Count 3.12 Hemoglobin 8.5 Hematocrit 26.4 Mean Corpuscular Volume 84.7 Mean Corpuscular Hemoglobin 27.2 Mean Corpuscular Hemoglobin 32.1 Concent Red Cell Distribution Width 14.4 Platelet Count 298 Mean Platelet Volume 8.2 Reticulocyte Count 1.4 Absolute Reticulocyte Count 42.8 Iron Level 13 Total Iron Binding Capacity 137 Percent Iron Saturation 9.5 Ferritin 224 Vitamin B12 Level 418 Date/Time Procedure Status Source Growth 11/13/16 13:16 Aerobic Blood Culture - Preliminary Resulted Blood Peripheral NO GROWTH IN 4 DAYS 11/13/16 13:16 Anaerobic Blood Culture - Preliminary Resulted Blood Peripheral NO GROWTH IN 4 DAYS ROS General: No: Fatigue, Weakness HEENT: No: Sore Throat, Dysphagia Cardiac: Chest Pain, No: Edema, Palpitations Pulmonary: Cough, SOB GI: No: Abdominal Pain, BM, Diarrhea, N/V /FIRESETTER: No: Dysuria, Urgency Neuro/MS: No: Lightheaded, Confusion Psych: No: Anxiety, Depression Skin: No: Itching, Rash Physical Exam Physical Exam GENERAL: This is a well-nourished, well-developed patient, in no apparent distress. SKIN: No rashes, ecchymoses or lesions. Cool and dry. HEAD: Atraumatic. Normocephalic. No temporal or scalp tenderness. EYES: Pupils equal round and reactive. Extraocular motions intact. No scleral icterus. No injection or drainage. ENT: Nose without bleeding, purulent drainage or septal hematoma. Throat without erythema, tonsillar hypertrophy or exudate. Uvula midline. Airway patent. NECK: Trachea midline. No JVD or lymphadenopathy. Supple, nontender, no meningeal signs. CARDIOVASCULAR: Regular rate and rhythm without murmurs, gallops, or rubs. RESPIRATORY: Faint bibasilar Rales. GASTROINTESTINAL: Abdomen soft, non-tender, nondistended. No hepato-splenomegaly , or palpable masses. No guarding. MUSCULOSKELETAL: Right lower extremity in cast. Intact sensation to right foot. Right pedal pulse 2+. No other joint abnormalities. Left pedal pulse 2+ NEUROLOGICAL: Awake, alert oriented 3. No focal deficit. Laboratory Urinary Catheter: No Vascular Central Line Catheter: No A/P Diagnosis: (1) Chest pain, atypical (2) Pulmonary embolism (3) HLD (hyperlipidemia) (4) Schizophrenia (5) Depression (6) Hyperlipidemia (7) hx right ankle orif (8) History of fracture of right ankle (9) bilateral consolidations (10) DVT of lower extremity, bilateral Assessment and Plan 66-year-old female admitted with chest pain, palpitations. CTA of the chest significant for pulmonary emboli. Patient was recently admitted after fall, was found with displaced right ankle trimalleolar fracture with syndesmosis disruption, status post-Open reduction internal fixation right ankle fractures with syndesmotic fixation 5/. Pulmonary emboli, had recent surgery, had not been moving as much. -US both legs + DVT bilat -Continue Xarelto -Hypercoagulable panel has been ordered, pending results -Continue with oxygen at 2 L to keep sats greater than 92. CTA findings of bibasilar consolidations remains febrile Blood cultures remain negative continue empiric antibiotics -IS ordered -if fever > 101, will repeat BC -afebrile x 24 hours S/P fall with displaced right ankle trimalleolar fracture with syndesmosis disruption, status post-Open reduction internal fixation right ankle fractures with syndesmotic fixation 5/5. Continue pain management Physical therapy Bowel regimen has been ordered Anemia, ? etiology unclear, recent surgery. -stool for OB pending -iron studies done, low iron stores. PO iron started -HH stable, no active bleeding -can have f/u at SNF Constipation, had mag citrate, had BM. Now no bm x 2 days. Milk of magnesia when necessary Depression, schizophrenia, stable Continue home medications Hyperlipidemia Continue home medications Improved, afebrile will have MOM today plan to dc today f/u ortho, pcp repeat CBC at facility diet-heart healthy activity-per ortho D/W RN D/W Dr. Mora D/W pt. This patient was seen by myself and Dr. Mora, this note is written on her behalf Discharge Planning 45 Problem Qualifiers (1) Pulmonary embolism: Qualified Code: I26.99 - Other acute pulmonary embolism without acute cor pulmonale (2) HLD (hyperlipidemia): Qualified Code: E78.5 - Hyperlipidemia, unspecified hyperlipidemia type (3) Schizophrenia: Qualified Code: F20.9 - Schizophrenia, unspecified type (4) Depression: Qualified Code: F32.9 - Depression, unspecified depression type (5) Hyperlipidemia: Qualified Code: E78.5 - Hyperlipidemia, unspecified hyperlipidemia type (6) DVT of lower extremity, bilateral: Mary Bonds November 17, 2016 11:51
[2016-11-17] MEDS: AZITHROMYCIN INJ 500 MG in SODIUM CHLOR 0.9% 250 ML INJ 250 ML IV SCH (16:06)
[2016-11-19 19:52] LABS: THROMBIN TIME FOR LA 16 sec (13-19)
[2016-11-19 23:51] LABS: PHOSPHATIDYLSERINE AB IGA LESS THAN 20.0 U/mL (()); PHOSPHATIDYLSERINE AB IGM LESS THAN 25.0 U/mL (())
== END 2016-11-17 18:06 | DRG 176 ==
LOC: NEPE 05:44 → NEDA 08:44 → HOCB 11:40
PROVIDERS: ADMIT Internal Medicine; ATTEND Internal Medicine
DX: I26.99 Other pulmonary embolism without acute cor pulmonale (principal); N17.9 Acute kidney failure, unspecified; I82.409 Acute embolism and thrombosis of unspecified deep veins of unspecified lower extremity; F20.9 Schizophrenia, unspecified; F31.9 Bipolar disorder, unspecified; S82.851D Displaced trimalleolar fracture of right lower leg, subsequent encounter for closed fracture with routine healing; E78.5 Hyperlipidemia, unspecified; R07.89 Other chest pain; K59.00 Constipation, unspecified; I51.7 Cardiomegaly; K44.9 Diaphragmatic hernia without obstruction or gangrene; D63.8 Anemia in other chronic diseases classified elsewhere; R50.9 Fever, unspecified; R00.0 Tachycardia, unspecified
CPT/HCPCS: 71010; 71275; 80048; 81001; 81240; 81241; 81291; 82550; 82607; 82728; 83090; 83540; 83550; 83690; 83735; 84484; 85025; 85027; 85044; 85240; 85300; 85303; 85306; 85307; 85598; 85610; 85613; 85670; 85730; 86146; 86147; 86148; 87040; 93005; 93970; 94150; 94664; 96361; 96372; 96374; J0456; J0696; J1650; J2270; J2405; J7030; J7050; Q9967

== ENCOUNTER 2017-07-19 14:50 | Emergency (ER) | payer MEDICARE ==
[~2017-07-19] VITALS: Ht 160 cm; Wt 73.0 kg
[~2017-07-19 14:50] MED LIST changes: +ALEN1TAB48 PO; -ERGO1CAP30 PO; +FERR200T PO; -HYDR-3288 PO; -QUET1TAB7 PO; +ROLLER WALKER1 MI1; +VITA500012 PO; +XARE20TA PO
[2017-07-19 14:56] VITALS: BP 136/87; PULSE 100; RESP 17; TEMP 99.4; O2SAT 98
--- NOTE | 2017-07-19 15:57 | PD ---
HPI Chief Complaint: Fall Time Seen by Provider: 15:46 Travel History International Travel<30 days: No Contact w/Intl Traveler<30days: No Traveled to known affect area: No History of Present Illness HPI 66-year-old female states she tripped on the uneven sidewalk area and fell on her face she could not catch herself. She states she did not black out. She states she is on Xarelto from a prior blood clot. She states she is having pain to her head and her face. She denies any other concurrent complaints. She notes also cuts to her face. She hurts worse if she moves around. She denies other modifying factors. She states the fall occurred shortly prior to arrival. PFSH Past Medical History Blood Disorders: No Anxiety: Yes Depression: Yes Heart Rhythm Problems: No Cancer: No Cardiac Catheterization: Yes (PT DOES NOT RECALL) Cardiovascular Problems: Yes High Cholesterol: Yes Diabetes: No Diminished Hearing: No Endocrine: No Genitourinary: No Hypertension: No Immune Disorder: No Implanted Vascular Access Dvce: Yes Musculoskeletal: Yes (ankle sx 2016) Neurologic: No Psychiatric: Yes (SCHIZOPHRENIA) Reproductive: No Respiratory: No Schizophrenia: Yes ?: Not Menopausal: Yes : 1 Para: 0 Miscarriage: 0 : 0 Past Surgical History Body Medical Devices: Plates in ankles Section: Yes Tonsillectomy: Yes Other Surgery: Yes (ankle repair 2016) Social History Alcohol Use: No Tobacco Use: No Substance Use: No Allergies-Medications (Allergen,Severity, Reaction): Coded Allergies: No Known Allergies (Unverified Adverse Reaction, Unknown, 07/19/17) Reported Meds & Prescriptions Reported Meds & Active Scripts Active Roller Walker (Misc. Devices) 1 Mis Mis Ea .ROUTE NOW Feosol (Ferrous Sulfate) 200 Mg Tab 200 Mg PO BIDPC Xarelto (Rivaroxaban) 20 Mg Tab 20 Mg PO DAILY start on December 05, 2016 Olanzapine 10 Mg Tab 20 Mg PO HS Walker/Adult/Folding (Device) 1 Mis Mis 1 Ea .ROUTE DIRECTED Calcium 600+D 200 (Calcium Carbonate-Vitamin D) 600-200 Mg-Unit Tab 1 Tab PO BID Vitamin D3 (Cholecalciferol) 2,000 Unit Cap 2,000 Units PO DAILY Ergocalciferol 50,000 Unit Cap 50,000 Units PO Q7D Reported Alendronate (Alendronate Sodium) 70 Mg Tab 70 Mg PO Q7D Fluoxetine (Fluoxetine HCl) 40 Mg Cap 40 Cap PO DAILY Buspirone (Buspirone HCl) 10 Mg Tab 10 Mg PO BID Atorvastatin (Atorvastatin Calcium) 20 Mg Tab 20 Mg PO DAILY Review of Systems Except as stated in HPI: all other systems reviewed are Neg Physical Exam Narrative GENERAL: Well-nourished, well-developed patient. SKIN: Warm and dry. HEAD: Normocephalic and patient has laceration to upper lip, just above lip and to forehead area EYES: No injection or drainage. ENT: No nasal drainage noted. No septal hematoma NECK: Supple, trachea midline. Nontender in midline with palpation and range of motion CARDIOVASCULAR: Regular rate and rhythm RESPIRATORY: Breath sounds equal bilaterally. No accessory muscle use. GASTROINTESTINAL: Abdomen soft, non-tender, nondistended. EXTREMITIES: No pain over main joints NEUROLOGICAL: Awake and alert. Motor and sensory grossly within normal limits. Normal speech. Data Data Last Documented VS Vital Signs Date Time Temp Pulse Resp B/P (MAP) Pulse Ox O2 Delivery O2 Flow Rate FiO2 07/19/17 17:00 85 18 133/67 (89) 96 Room Air 07/19/17 16:04 2.00 07/19/17 14:56 99.4 Orders Orders Basic Metabolic Panel (Bmp) (07/19/17 15:49) Complete Blood Count With Diff (07/19/17 15:49) Prothrombin Time / Inr (Pt) (07/19/17 15:49) Act Partial Throm Time (Ptt) (07/19/17 15:49) Type And Screen (07/19/17 15:49) Ct Brain W/O Iv Contrast(Rout) (07/19/17 15:49) Ct Facial Bones W/O Iv Cont (07/19/17 15:49) Iv Access Insert/Monitor (07/19/17 15:49) Ecg Monitoring (07/19/17 15:49) Oximetry (07/19/17 15:49) Sodium Chloride 0.9% Flush (Ns Flush) (07/19/17 16:00) Urinalysis - C+S If Indicated (07/19/17 15:49) Sodium Chlorid 0.9% 500 Ml Inj (Ns 500 M (07/19/17 17:15) Lidocai-Epi 2%-1:100,000 Inj (Xylocaine- (07/19/17 17:15) Lidocai-Epi 2%-1:100,000 Inj (Xylocaine- (07/19/17 17:16) Ed Discharge Order (07/19/17 18:13) Labs Laboratory Tests Test 07/19/17 16:09 07/19/17 17:02 White Blood Count 11.6 TH/MM3 Red Blood Count 4.21 MIL/MM3 Hemoglobin 12.6 GM/DL Hematocrit 36.3 % Mean Corpuscular Volume 86.3 FL Mean Corpuscular Hemoglobin 30.1 PG Mean Corpuscular Hemoglobin Concent 34.9 % Red Cell Distribution Width 15.1 % Platelet Count 222 TH/MM3 Mean Platelet Volume 8.7 FL Neutrophils (%) (Auto) 77.9 % Lymphocytes (%) (Auto) 12.9 % Monocytes (%) (Auto) 7.3 % Eosinophils (%) (Auto) 1.2 % Basophils (%) (Auto) 0.7 % Neutrophils # (Auto) 9.1 TH/MM3 Lymphocytes # (Auto) 1.5 TH/MM3 Monocytes # (Auto) 0.9 TH/MM3 Eosinophils # (Auto) 0.1 TH/MM3 Basophils # (Auto) 0.1 TH/MM3 CBC Comment DIFF FINAL Differential Comment Prothrombin Time 11.8 SEC Prothromb Time International Ratio 1.2 RATIO Activated Partial Thromboplast Time 28.9 SEC Blood Urea Nitrogen 13 MG/DL Creatinine 1.08 MG/DL Random Glucose 103 MG/DL Calcium Level 9.9 MG/DL Sodium Level 137 MEQ/L Potassium Level 4.3 MEQ/L Chloride Level 106 MEQ/L Carbon Dioxide Level 20.8 MEQ/L Anion Gap 10 MEQ/L Estimat Glomerular Filtration Rate 51 ML/MIN Urine Color LIGHT-YELLOW Urine Turbidity CLEAR Urine pH 7.0 Urine Specific [place] 1.003 Urine Protein NEG mg/dL Urine Glucose (UA) NEG mg/dL Urine Ketones NEG mg/dL Urine Occult Blood NEG Urine Nitrite NEG Urine Bilirubin NEG Urine Urobilinogen LESS THAN 2.0 MG/DL Urine Leukocyte Esterase SMALL Urine RBC LESS THAN 1 /hpf Urine WBC 3 /hpf Urine Squamous Epithelial Cells <1 /hpf Urine Bacteria RARE /hpf Microscopic Urinalysis Comment CULT NOT INDICATED MDM Medical Decision Making Medical Screen Exam Complete: Yes Emergency Medical Condition: Yes Medical Record Reviewed: Yes (pmh confirmed) Interpretation(s) CBC & BMP Diagram 07/19/17 16:09 Calcium Level 9.9 Last [address] 07/19/17 1549 Signed Impressions: Service Date/Time: Wednesday, July 19, 2017 16:25 - CONCLUSION: Intact facial bones. Bernardo Edouard MD Head CT 07/19/17 1549 Signed Impressions: Service Date/Time: Wednesday, July 19, 2017 16:25 - CONCLUSION: Negative noncontrast head CT. Bernardo Edouard MD Differential Diagnosis Fracture, strain, bleed Narrative Course Will check blood work, urinalysis, trauma imaging and reevaluate ed workup no acute, pa to assist with laceration repairs Patient denies any new complaints and states that they are feeling better. Patient happy with care, all questions answered. Patient knows that follow up is incumbent on them and to return to the emergency room immediately if new or worsening symptoms develop. Patient given strict return precautions, vitals reviewed and are normal, agrees to further workup as an outpatient. Diagnosis Primary Impression: Fall Qualified Codes: W19.XXXA - Unspecified fall, initial encounter Additional Impression: Facial laceration Qualified Codes: S01.81XA - Laceration without foreign body of other part of head, initial encounter Patient Instructions: General Instructions Additional Instructions: return in 5-7 days to primary for suture removal, return here as emergently needed, tylenol as needed for pain Med/Other Pt SpecificInfo: No Change to Meds Disposition: 01 DISCHARGE HOME Condition: Stable Desi Pryor MD Jul 19, 2017 15:57
[2017-07-19] MEDS ORDERED: SODIUM CHLORIDE 0.9% FLUSH 10 ML FLUSH IVF PRN (16:00)
[2017-07-19 16:04] VITALS: O2SAT 97
[2017-07-19 16:31] LABS: AUTOMATED NEUTROPHIL # 9.1 TH/MM3 (1.8-7.7); BASOPHIL # 0.1 TH/MM3 (0-0.2); BASOPHIL % 0.7 % (0.0-2.0); EOSINOPHIL # 0.1 TH/MM3 (0-0.4); EOSINOPHIL % 1.2 % (0.0-4.0); HEMATOCRIT 36.3 % (35.0-46.0); HEMOGLOBIN 12.6 GM/DL (11.6-15.3); LYMPH % 12.9 % (9.0-44.0); LYMPHOCYTE # 1.5 TH/MM3 (1.0-4.8); MEAN CELL VOLUME 86.3 FL (80.0-100.0); MEAN CORPUSCULAR HEMOGLOBIN 30.1 PG (27.0-34.0); MEAN CORPUSCULAR HGB CONC 34.9 % (32.0-36.0); MEAN PLATELET VOLUME 8.7 FL (7.0-11.0); MONO % 7.3 % (0.0-8.0); MONOCYTE # 0.9 TH/MM3 (0-0.9); NEUT % 77.9 % (16.0-70.0); PLATELET COUNT 222 TH/MM3 (150-450); RED BLOOD COUNT 4.21 MIL/MM3 (4.00-5.30); RED CELL DISTRIBUTION WIDTH 15.1 % (11.6-17.2); WHITE BLOOD COUNT 11.6 TH/MM3 (4.0-11.0)
[2017-07-19 16:39] LABS: INTERNATIONAL NORMALIZED RATIO 1.2 RATIO; PROTHROMBIN TIME - PATIENT 11.8 SEC (9.8-11.6)
--- NOTE | 2017-07-19 16:47 | RADRPT ---
EXAM DATE/TIME: 07/19/2017 16:25 [facility] COMPARISON: CT BRAIN W/O CONTRAST, June 08, 2017, 9:41. INDICATIONS : Trauma; fall. RADIATION DOSE: 48.92 CTDIvol (mGy) MEDICAL HISTORY : Cardiovascular disease. SURGICAL HISTORY : None. ENCOUNTER: Initial ACUITY: 1 day PAIN SCALE: 5/10 LOCATION: cranial TECHNIQUE: Multiple contiguous axial images were obtained of the head. Using automated exposure control and adj ustment of the mA and/or kV according to patient size, radiation dose was kept as low as reasonably a chievable to obtain optimal diagnostic quality images. DICOM format image data is available electro nically for review and comparison. FINDINGS: CEREBRUM: The ventricles are normal for age. No evidence of midline shift, mass lesion, hemorrhage or acute in farction. No extra-axial fluid collections are seen. POSTERIOR FOSSA: The cerebellum and brainstem are intact. The 4th ventricle is midline. The cerebellopontine angle i s unremarkable. EXTRACRANIAL: The visualized portion of the orbits is intact. SKULL: The calvaria is intact. No evidence of skull fracture. CONCLUSION: Negative noncontrast head CT. Bernardo Edouard MD on July 19, 2017 at 16:44 Board Certified Radiologist. This report was verified electronically.
--- NOTE | 2017-07-19 16:49 | RADRPT ---
EXAM DATE/TIME: 07/19/2017 16:25 [facility] COMPARISON: No previous studies available for comparison. INDICATIONS : Trauma; fall. RADIATION DOSE: 41.92 CTDIvol (mGy) MEDICAL HISTORY : Cardiovascular disease. SURGICAL HISTORY : None. ENCOUNTER: Initial ACUITY: 1 day PAIN SCORE: 5/10 LOCATION: Bilateral facial TECHNIQUE: Volumetric scanning of the facial bones was performed. Using automated exposure control and adjustme nt of the mA and/or kV according to patient size, radiation dose was kept as low as reasonably achiev able to obtain optimal diagnostic quality images. DICOM format image data is available electronicall y for review and comparison. FINDINGS: ORBITS: The orbital and infraorbital osseous structures are intact. The retroconal structures have a normal configuration. No radiopaque foreign bodies are seen. NASAL BONE: The nasal bone and maxillary spine are intact ZYGOMATIC ARCHES: Symmetric without evidence of fracture. SINUSES: The maxillary, ethmoid and frontal sinuses are intact. No air-fluid levels seen. NASAL CAVITY: The nasal septum is intact and midline. The lacrimal ducts are intact. SOFT TISSUES: No radiopaque foreign bodies seen. No soft-tissue swelling is seen. INTRACRANIAL: No intracranial air seen. CRIBIFORM PLATE: Grossly intact. There are broken and/or missing teeth, age-indeterminate. Patient appears have a partial. CONCLUSION: Intact facial bones. Bernardo Edouard MD on July 19, 2017 at 16:45 Board Certified Radiologist. This report was verified electronically.
[2017-07-19 16:55] LABS: BICARBONATE 20.8 MEQ/L (21.0-32.0); CALCIUM 9.9 MG/DL (8.5-10.1); CREATININE 1.08 MG/DL (0.50-1.00)
[2017-07-19 17:00] VITALS: BP 133/67; PULSE 85; RESP 18; O2SAT 96
[2017-07-19] MEDS ORDERED: LIDOCAINE 2%/EPINEPHrine 1:100,000 30ML MDV INFIL ONE (17:15)
[2017-07-19] MEDS ORDERED: SODIUM CHLORID 0.9% 500 ML INJ 500 ML IV ONE (17:15)
[2017-07-19] MEDS ORDERED: LIDOCAINE 2%/EPINEPHrine 1:100,000 50ML MDV ONE (17:16)
[2017-07-19 17:26] LABS: BACTERIA, URINE RARE /hpf; BILIRUBIN, URINE NEG (NEG); BLOOD, URINE NEG (NEG); GLUCOSE,URINE NEG (NEG); KETONE, URINE NEG (NEG); NITRITE,URINE NEG (NEG); SQUAMOUS EPITHELIAL CELL URINE <1 /hpf (0-5); URINE COLOR LIGHT-YELLOW (YELLW/STRAW); URINE LEUKOCYTE ESTERASE SMALL (NEG)
--- NOTE | 2017-07-19 17:54 | PD ---
Physical Exam Date Seen by Provider: Jul 19, 2017 Time Seen by Provider: 17:50 Narrative Was asked by Dr. Pryor to see this patient for laceration repair. Patient has 3 lacerations to the anterior face. See my laceration note. Data Data Last Documented VS Vital Signs Date Time Temp Pulse Resp B/P (MAP) Pulse Ox O2 Delivery O2 Flow Rate FiO2 07/19/17 17:00 85 18 133/67 (89) 96 Room Air 07/19/17 16:04 2.00 07/19/17 14:56 99.4 Orders Orders Basic Metabolic Panel (Bmp) (07/19/17 15:49) Complete Blood Count With Diff (07/19/17 15:49) Prothrombin Time / Inr (Pt) (07/19/17 15:49) Act Partial Throm Time (Ptt) (07/19/17 15:49) Type And Screen (07/19/17 15:49) Ct Brain W/O Iv Contrast(Rout) (07/19/17 15:49) Ct Facial Bones W/O Iv Cont (07/19/17 15:49) Iv Access Insert/Monitor (07/19/17 15:49) Ecg Monitoring (07/19/17 15:49) Oximetry (07/19/17 15:49) Sodium Chloride 0.9% Flush (Ns Flush) (07/19/17 16:00) Urinalysis - C+S If Indicated (07/19/17 15:49) Sodium Chlorid 0.9% 500 Ml Inj (Ns 500 M (07/19/17 17:15) Lidocai-Epi 2%-1:100,000 Inj (Xylocaine- (07/19/17 17:15) Lidocai-Epi 2%-1:100,000 Inj (Xylocaine- (07/19/17 17:16) Labs Laboratory Tests Test 07/19/17 16:09 07/19/17 17:02 White Blood Count 11.6 TH/MM3 Red Blood Count 4.21 MIL/MM3 Hemoglobin 12.6 GM/DL Hematocrit 36.3 % Mean Corpuscular Volume 86.3 FL Mean Corpuscular Hemoglobin 30.1 PG Mean Corpuscular Hemoglobin Concent 34.9 % Red Cell Distribution Width 15.1 % Platelet Count 222 TH/MM3 Mean Platelet Volume 8.7 FL Neutrophils (%) (Auto) 77.9 % Lymphocytes (%) (Auto) 12.9 % Monocytes (%) (Auto) 7.3 % Eosinophils (%) (Auto) 1.2 % Basophils (%) (Auto) 0.7 % Neutrophils # (Auto) 9.1 TH/MM3 Lymphocytes # (Auto) 1.5 TH/MM3 Monocytes # (Auto) 0.9 TH/MM3 Eosinophils # (Auto) 0.1 TH/MM3 Basophils # (Auto) 0.1 TH/MM3 CBC Comment DIFF FINAL Differential Comment Prothrombin Time 11.8 SEC Prothromb Time International Ratio 1.2 RATIO Activated Partial Thromboplast Time 28.9 SEC Blood Urea Nitrogen 13 MG/DL Creatinine 1.08 MG/DL Random Glucose 103 MG/DL Calcium Level 9.9 MG/DL Sodium Level 137 MEQ/L Potassium Level 4.3 MEQ/L Chloride Level 106 MEQ/L Carbon Dioxide Level 20.8 MEQ/L Anion Gap 10 MEQ/L Estimat Glomerular Filtration Rate 51 ML/MIN Urine Color LIGHT-YELLOW Urine Turbidity CLEAR Urine pH 7.0 Urine Specific [place] 1.003 Urine Protein NEG mg/dL Urine Glucose (UA) NEG mg/dL Urine Ketones NEG mg/dL Urine Occult Blood NEG Urine Nitrite NEG Urine Bilirubin NEG Urine Urobilinogen LESS THAN 2.0 MG/DL Urine Leukocyte Esterase SMALL Urine RBC LESS THAN 1 /hpf Urine WBC 3 /hpf Urine Squamous Epithelial Cells <1 /hpf Urine Bacteria RARE /hpf Microscopic Urinalysis Comment CULT NOT INDICATED MDM Medical Record Reviewed: Yes Supervised Visit with KELLEY: Yes Procedures Procedure Narrative LACERATION # 1 LOCATION: Medial forehead LENGTH: 2 cm NUMBER OF STITCHES/IVAN: 6 interrupted simple REPAIR: The area of the laceration was prepped with Betadine and sterilely draped. The laceration was infiltrated with 3 mL 1% lidocaine with epi. The wound was copiously irrigated and explored without evidence of foreign body, tendon injury or neurovascular injury. The wound was closed using 5-0 Vicryl. This was a single layer repair. The patient was advised to keep the wound site clean and dry. Patient tolerated the procedure well. LACERATION #2 LOCATION: Middle upper lip LENGTH: 0.5 cm NUMBER OF STITCHES/IVAN: 3 simple interrupted REPAIR: The area of the laceration was prepped with Betadine and sterilely draped. The laceration was infiltrated with 2 mL 1% lidocaine with epi. The wound was copiously irrigated and explored without evidence of foreign body, tendon injury or neurovascular injury. The wound was closed using 5-0 Vicryl. This was a single layer repair. The patient was advised to keep the wound clean and dry. Patient tolerated the procedure well. LACERATION #3 LOCATION: Middle upper lip crossing the vermilion border LENGTH: 0.5 cm NUMBER OF STITCHES/IVAN: 5 simple interrupted REPAIR: The area of the laceration was prepped with Betadine and sterilely draped. The laceration was infiltrated with 2 mL 1% lidocaine with epi. The wound was copiously irrigated and explored without evidence of foreign body, tendon injury or neurovascular injury. The wound was closed using 5-0 Vicryl. This was a single layer repair. The patient was advised to keep the wound clean and dry. Patient tolerated the procedure well. Condition: Stable Eliseo Shoemaker Jul 19, 2017 17:54
== END 2017-07-19 18:44 | disposition home or self-care (01) ==
LOC: NEPC 14:50
DX: S01.81XA Laceration without foreign body of other part of head, initial encounter (principal); E78.00 Pure hypercholesterolemia, unspecified; W01.0XXA Fall on same level from slipping, tripping and stumbling without subsequent striking against object, initial encounter; Y92.480 Sidewalk as the place of occurrence of the external cause; Z79.01 Long term (current) use of anticoagulants
CPT/HCPCS: 12013; 70450; 70486; 80048; 81001; 85025; 85610; 85730; 86850; 86900; 86901; 96360; 99285; J7040

== ENCOUNTER 2017-10-16 07:52 | Emergency (ER) | payer MEDICARE ==
[~2017-10-16] VITALS: Ht 167.6 cm; Wt 76.0 kg
[2017-10-16 07:55] VITALS: BP 115/66; PULSE 88; RESP 18; TEMP 98.7; O2SAT 95
--- NOTE | 2017-10-16 08:17 | PD ---
HPI Chief Complaint: GI Complaint Time Seen by Provider: 08:07 Travel History International Travel<30 days: No Contact w/Intl Traveler<30days: No Traveled to known affect area: No History of Present Illness HPI The patient was seen and examined in the presence of the nurse. This patient complains of nausea and vomiting. She had 2 episodes this morning around 6 AM. She is a alf patient. She does have schizophrenia. She requested to be sent to the ER. She does not have abdominal pain or diarrhea or fever or constipation. No alleviating factors. No exacerbating factors. No abdominal surgeries. Symptom severity was moderate PFSH Past Medical History Blood Disorders: No Anxiety: Yes Depression: Yes Heart Rhythm Problems: No Cancer: No Cardiac Catheterization: Yes (PT DOES NOT RECALL) Cardiovascular Problems: Yes High Cholesterol: Yes Diabetes: No Diminished Hearing: No Endocrine: No Genitourinary: No Hypertension: No Immune Disorder: No Implanted Vascular Access Dvce: Yes Musculoskeletal: Yes (ankle sx 2016) Neurologic: No Psychiatric: Yes (SCHIZOPHRENIA) Reproductive: No Respiratory: No Schizophrenia: Yes Menopausal: Yes : 1 Para: 0 Miscarriage: 0 : 0 Past Surgical History Body Medical Devices: Plates in ankles Tonsillectomy: Yes Other Surgery: Yes (ankle repair 2016) Social History Alcohol Use: Yes (NOT OFTEN) Tobacco Use: No Substance Use: No Allergies-Medications (Allergen,Severity, Reaction): Coded Allergies: No Known Allergies (Unverified Adverse Reaction, Unknown, 10/16/17) Reported Meds & Prescriptions Reported Meds & Active Scripts Active Roller Walker (Misc. Devices) 1 Mis Mis Ea .ROUTE NOW Feosol (Ferrous Sulfate) 200 Mg Tab 200 Mg PO BIDPC Xarelto (Rivaroxaban) 20 Mg Tab 20 Mg PO DAILY start on December 05, 2016 Olanzapine 10 Mg Tab 20 Mg PO HS Walker/Adult/Folding (Device) 1 Mis Mis 1 Ea .ROUTE DIRECTED Calcium 600+D 200 (Calcium Carbonate-Vitamin D) 600-200 Mg-Unit Tab 1 Tab PO BID Vitamin D3 (Cholecalciferol) 2,000 Unit Cap 2,000 Units PO DAILY Ergocalciferol 50,000 Unit Cap 50,000 Units PO Q7D Reported Bupropion HCl ER 12 HR (Bupropion HCl) 100 Mg Tab 150 Mg PO Q12HR Haloperidol 2 Mg Tab 2 Mg PO BID Alendronate (Alendronate Sodium) 70 Mg Tab 70 Mg PO Q7D Fluoxetine (Fluoxetine HCl) 40 Mg Cap 40 Cap PO DAILY Buspirone (Buspirone HCl) 10 Mg Tab 10 Mg PO BID Atorvastatin (Atorvastatin Calcium) 20 Mg Tab 20 Mg PO DAILY Review of Systems General / Constitutional: No: Fever Eyes: No: Visual changes HENT: No: Headaches Cardiovascular: No: Chest Pain or Discomfort Respiratory: No: Shortness of Breath Gastrointestinal: Positive: Nausea, Vomiting, No: Abdominal Pain Genitourinary: No: Dysuria Musculoskeletal: No: Pain Skin: No Rash Neurologic: No: Weakness Psychiatric: No: Depression Endocrine: No: Polydipsia Hematologic/Lymphatic: No: Easy Bruising Physical Exam Narrative GENERAL: Well-nourished, well-developed patient in no apparent distress. SKIN: Focused skin assessment reveals no rash and nodules. Skin is Warm and dry. HEAD: Atraumatic. Normocephalic. EYES: Pupils equal and round. No scleral icterus. No injection or drainage. ENT: No nasal bleeding or discharge. Mucous membranes pink and moist. NECK: Trachea midline. No JVD. CARDIOVASCULAR: Regular rate and rhythm. No murmur appreciated. RESPIRATORY: No accessory muscle use. Clear to auscultation. Breath sounds equal bilaterally. GASTROINTESTINAL: Abdomen soft, non-tender, nondistended. Hepatic and splenic margins not palpable. MUSCULOSKELETAL: No obvious deformities. No clubbing. No cyanosis. No edema. NEUROLOGICAL: Awake and alert. No obvious cranial nerve deficits. Motor grossly within normal limits. Normal speech. PSYCHIATRIC: Appropriate mood and affect; insight and judgment bit reduced from psychiatric disease Data Data Last Documented VS Vital Signs Date Time Temp Pulse Resp B/P (MAP) Pulse Ox O2 Delivery O2 Flow Rate FiO2 10/16/17 09:40 79 18 120/93 (102) 94 Room Air 10/16/17 07:55 98.7 Orders Orders Complete Blood Count With Diff (10/16/17 08:13) Comprehensive Metabolic Panel (10/16/17 08:13) Iv Access Insert/Monitor (10/16/17 08:13) Labs Laboratory Tests Test 10/16/17 08:18 White Blood Count 7.0 TH/MM3 Red Blood Count 4.48 MIL/MM3 Hemoglobin 13.4 GM/DL Hematocrit 39.7 % Mean Corpuscular Volume 88.6 FL Mean Corpuscular Hemoglobin 29.9 PG Mean Corpuscular Hemoglobin Concent 33.7 % Red Cell Distribution Width 13.7 % Platelet Count 188 TH/MM3 Mean Platelet Volume 8.5 FL Neutrophils (%) (Auto) 73.4 % Lymphocytes (%) (Auto) 16.5 % Monocytes (%) (Auto) 9.4 % Eosinophils (%) (Auto) 0.3 % Basophils (%) (Auto) 0.4 % Neutrophils # (Auto) 5.1 TH/MM3 Lymphocytes # (Auto) 1.2 TH/MM3 Monocytes # (Auto) 0.7 TH/MM3 Eosinophils # (Auto) 0.0 TH/MM3 Basophils # (Auto) 0.0 TH/MM3 CBC Comment DIFF FINAL Differential Comment Blood Urea Nitrogen 9 MG/DL Creatinine 1.07 MG/DL Random Glucose 146 MG/DL Total Protein 7.5 GM/DL Albumin 3.6 GM/DL Calcium Level 9.1 MG/DL Alkaline Phosphatase 105 U/L Aspartate Amino Transf (AST/SGOT) 17 U/L Alanine Aminotransferase (ALT/SGPT) 16 U/L Total Bilirubin 0.3 MG/DL Sodium Level 141 MEQ/L Potassium Level 4.0 MEQ/L Chloride Level 106 MEQ/L Carbon Dioxide Level 23.3 MEQ/L Anion Gap 12 MEQ/L Estimat Glomerular Filtration Rate 51 ML/MIN MDM Medical Decision Making Medical Screen Exam Complete: Yes Emergency Medical Condition: Yes Medical Record Reviewed: Yes Differential Diagnosis Gastroenteritis, gastritis, medication side effect Narrative Course I have reviewed the patient's electronic medical record. Patient was seen here for vomiting 2014 but not since IV placed and labs sent Lab studies are normal. Patient is now asymptomatic on recheck. Stable for return to alf Diagnosis Primary Impression: Nausea and vomiting Qualified Codes: R11.2 - Nausea with vomiting, unspecified Additional Instructions: The patient was advised to follow up with their physician and return if they worsen. Med/Other Pt SpecificInfo: Other Disposition: 03 DISCHARGE TO SNF Condition: Stable Jean Carlos Barron MD Oct 16, 2017 08:17
[2017-10-16] MEDS ORDERED: HALO2TAB PO (08:18)
[2017-10-16] MEDS ORDERED: BUPR1TAB70 PO (08:18)
[2017-10-16 08:31] LABS: AUTOMATED NEUTROPHIL # 5.1 TH/MM3 (1.8-7.7); BASOPHIL % 0.4 % (0.0-2.0); EOSINOPHIL % 0.3 % (0.0-4.0); HEMATOCRIT 39.7 % (35.0-46.0); HEMOGLOBIN 13.4 GM/DL (11.6-15.3); LYMPH % 16.5 % (9.0-44.0); LYMPHOCYTE # 1.2 TH/MM3 (1.0-4.8); MEAN CELL VOLUME 88.6 FL (80.0-100.0); MEAN CORPUSCULAR HEMOGLOBIN 29.9 PG (27.0-34.0); MEAN CORPUSCULAR HGB CONC 33.7 % (32.0-36.0); MEAN PLATELET VOLUME 8.5 FL (7.0-11.0); MONO % 9.4 % (0.0-8.0); MONOCYTE # 0.7 TH/MM3 (0-0.9); NEUT % 73.4 % (16.0-70.0); PLATELET COUNT 188 TH/MM3 (150-450); RED BLOOD COUNT 4.48 MIL/MM3 (4.00-5.30); RED CELL DISTRIBUTION WIDTH 13.7 % (11.6-17.2)
[2017-10-16 08:53] LABS: ALBUMIN 3.6 GM/DL (3.4-5.0); ALT (GPT) 16 U/L (10-53); AST (GOT) 17 U/L (15-37); BICARBONATE 23.3 MEQ/L (21.0-32.0); BLOOD UREA NITROGEN 9 MG/DL (7-18); CALCIUM 9.1 MG/DL (8.5-10.1); CHLORIDE 106 MEQ/L (98-107); CREATININE 1.07 MG/DL (0.50-1.00); GLOMERULAR FILTRATION RATE 51 ML/MIN (>89); GLUCOSE,RANDOM 146 MG/DL (74-106); SODIUM (NA) 141 MEQ/L (136-145)
[2017-10-16 08:54] LABS: ALKALINE PHOSPHATASE 105 U/L (45-117); TOTAL BILIRUBIN ADULT 0.3 MG/DL (0.2-1.0); TOTAL PROTEIN 7.5 GM/DL (6.4-8.2)
[2017-10-16 09:40] VITALS: BP 120/93; PULSE 79; RESP 18; O2SAT 94
[2017-10-16 11:52] VITALS: BP 120/68; PULSE 80; RESP 18; O2SAT 98
== END 2017-10-16 13:10 ==
LOC: NEPC 07:52
DX: R11.2 Nausea with vomiting, unspecified (principal); E78.00 Pure hypercholesterolemia, unspecified; F20.9 Schizophrenia, unspecified
CPT/HCPCS: 80053; 85025; 99283